=== PATIENT | male | born 1955 | race African-American/Black ===

== ENCOUNTER 2017-07-19 14:51 | Emergency (ER) | payer MEDICARE, MEDICAID ==
[2010-07-14 08:17] VITALS: BMI 33.0
[2017-07-19 18:23] LABS: BASOPHILS 0.3 % (0-2); EOSINOPHILS 1.8 % (0-7); HEMATOCRIT 39.3 % (42.0-54.0); HEMOGLOBIN 13.2 g/dL (13.5-17.5); IMMATURE GRANULOCYTES 0.3 % (0-5); LYMPHOCYTES 35.3 % (15-50); MCHC 33.6 g/dL (31.0-37.0); MCV 89.3 fL (80.0-100.0); MEAN PLATELET VOLUME 9.9 fL (7.4-10.4); MONOCYTES 11.9 % (2-11); NEUTROPHILS 50.4 % (40-80); PLATELET COUNT 208 10x3/uL (130-400); RDW 14.4 % (11.5-14.5); WBC 3.9 10x3/uL (4.8-10.8)
[2017-07-19 18:43] LABS: ALBUMIN 3.3 g/dL (3.4-5.0); ALKALINE PHOSPHATASE 69 U/L (46-116); ALT (SGPT) 22 U/L (10-68); BILIRUBIN - TOTAL 0.49 mg/dL (0.2-1.3); CALC OSMOLALITY 269 mosm/kg (275-300); CALCIUM 8.5 mg/dL (8.5-10.1); CARBON DIOXIDE 27.7 mmol/L (21.0-32.0); CHLORIDE - SERUM 115 mmol/L (98-107); CREATININE - SERUM 0.9 mg/dL (0.6-1.3); GLUCOSE 87 mg/dL (74-106); POTASSIUM - SERUM 4.1 mmol/L (3.5-5.1); PROTEIN - SERUM 6.7 g/dL (6.4-8.2); SODIUM 135 mmol/L (136-145); UREA NITROGEN 15 mg/dL (7-18); eGFR NON AFRICAN AMERICAN > 90 mL/min (90-120)
== END 2017-07-19 21:59 | disposition home or self-care (01) ==
LOC: D.ER 14:51
PROVIDERS: Physician Assistant Medical
DX: M54.5 Low back pain (principal); M54.30 Sciatica, unspecified side; I10 Essential (primary) hypertension

== ENCOUNTER 2017-07-28 13:16 | Emergency (ER) | payer MEDICARE, MEDICAID ==
[2010-07-14 08:17] VITALS: BMI 33.0
[2017-07-28 13:56] LABS: BASOPHILS 0.7 % (0-2); EOSINOPHILS 1.6 % (0-7); HEMATOCRIT 42.9 % (42.0-54.0); HEMOGLOBIN 14.8 g/dL (13.5-17.5); LYMPHOCYTES 37.7 % (15-50); MCH 30.7 pg (26.0-34.0); MCHC 34.5 g/dL (31.0-37.0); MEAN PLATELET VOLUME 9.8 fL (7.4-10.4); MONOCYTES 8.4 % (2-11); NEUTROPHILS 51.6 % (40-80); PLATELET COUNT 227 10x3/uL (130-400); RBC 4.82 10x6/uL (4.20-6.10); RDW 14.3 % (11.5-14.5)
[2017-07-28 14:05] LABS: WBC 4.3 10x3/uL (4.8-10.8)
[2017-07-28 14:08] LABS: ALBUMIN 3.8 g/dL (3.4-5.0); ALKALINE PHOSPHATASE 76 U/L (46-116); ALT (SGPT) 28 U/L (10-68); BILIRUBIN - TOTAL 0.63 mg/dL (0.2-1.3); CALC OSMOLALITY 278 mosm/kg (275-300); CALCIUM 8.7 mg/dL (8.5-10.1); CARBON DIOXIDE 24.5 mmol/L (21.0-32.0); CHLORIDE - SERUM 105 mmol/L (98-107); GLUCOSE 98 mg/dL (74-106); LIPASE 90 U/L (73-393); PROTEIN - SERUM 7.4 g/dL (6.4-8.2); SODIUM 139 mmol/L (136-145); UREA NITROGEN 14 mg/dL (7-18); eGFR NON AFRICAN AMERICAN 81 mL/min (90-120)
[2017-07-28 14:37] LABS: APPEARANCE CLEAR (CLEAR); BILIRUBIN NEGATIVE (NEGATIVE); COLOR YELLOW (YELLOW); GLUCOSE NEGATIVE (NEGATIVE); KETONE NEGATIVE (NEGATIVE); NITRITE NEGATIVE (NEGATIVE); PROTEIN NEGATIVE (NEGATIVE); SPECIFIC GRAVITY 1.015 (1.005-1.020); UROBILINOGEN NORMAL (NORMAL)
[2017-07-28 14:38] LABS: BACTERIA FEW /hpf (NONE SEEN); EPITHELIAL CELLS OCC /hpf (0-5); MUCUS <1+ /lpf (NONE SEEN); RED CELLS - URINE OCC /hpf (0-5); WHITE CELLS - URINE RARE /hpf (0-5)
== END 2017-07-28 17:09 | disposition home or self-care (01) ==
LOC: D.ER 13:16
PROVIDERS: Emergency Medicine
DX: K59.00 Constipation, unspecified (principal)

== ENCOUNTER 2017-07-29 08:01 | Emergency (ER) | payer MEDICARE, MEDICAID ==
[2010-07-14 08:17] VITALS: BMI 33.0
== END 2017-07-29 09:50 | disposition home or self-care (01) ==
LOC: D.ER 08:01
DX: M54.5 Low back pain (principal); M51.36 Other intervertebral disc degeneration, lumbar region; I10 Essential (primary) hypertension

== ENCOUNTER → 2020-01-18 17:35 | Outpatient (CLI) | payer MEDICARE, MEDICAID ==
[2010-07-14 08:17] VITALS: BMI 33.0
== END | disposition home or self-care (01) ==
LOC: D.LABREF 17:35
PROVIDERS: ATTEND Orthopaedic Surgery
DX: M17.12 Unilateral primary osteoarthritis, left knee (principal)

== ENCOUNTER 2020-01-25 09:22 | Inpatient (IN) | payer MEDICARE, MEDICAID ==
[~2020-01-25] VITALS: Ht 172.7 cm; Wt 107.7 kg
[2020-01-30] MEDS ORDERED: TOPROL XL100 MG PO (13:52)
[2020-01-30] MEDS ORDERED: ULTRAM50 MG PO (13:53)
[2020-01-30] MEDS ORDERED: MOBIC7.5 MG PO (13:53)
[2020-01-30] MEDS ORDERED: ZANAFLEX4 MG PO (13:54)
[2020-01-31 11:56] LABS: BILIRUBIN NEGATIVE (NEGATIVE); KETONE NEGATIVE (NEGATIVE); NITRITE NEGATIVE (NEGATIVE); UROBILINOGEN NORMAL (NORMAL)
[2020-01-31 12:03] LABS: CALC OSMOLALITY 281 mosm/kg (275-300); CALCIUM 8.2 mg/dL (8.5-10.1); CARBON DIOXIDE 25.3 mmol/L (21.0-32.0); CHLORIDE - SERUM 107 mmol/L (98-107); GLUCOSE 91 mg/dL (74-106); POTASSIUM - SERUM 4.3 mmol/L (3.5-5.1); SODIUM 141 mmol/L (136-145); UREA NITROGEN 15 mg/dL (7-18); eGFR NON AFRICAN AMERICAN 80 mL/min (90-120)
[2020-01-31 12:05] LABS: BASOPHILS 0.8 % (0-2); EOSINOPHILS 2.9 % (0-7); HEMATOCRIT 44.1 % (42.0-54.0); HEMOGLOBIN 14.8 g/dL (13.5-17.5); IMMATURE GRANULOCYTES 0.3 % (0-5); LYMPHOCYTES 33.5 % (15-50); MCHC 33.6 g/dL (31.0-37.0); MCV 92.3 fL (80.0-100.0); MEAN PLATELET VOLUME 10.3 fL (7.4-10.4); MONOCYTES 9.7 % (2-11); NEUTROPHILS 52.8 % (40-80); PLATELET COUNT 206 10x3/uL (130-400); RBC 4.78 10x6/uL (4.20-6.10); RDW 14.8 % (11.5-14.5); WBC 3.8 10x3/uL (4.8-10.8)
[2020-01-31 12:21] LABS: APTT 28.6 SECONDS (22.8-39.4); INR 1.12 (0.85-1.17); PROTIME 14.4 SECONDS (11.6-15.0)
[2020-02-06] VITALS (9 sets, daily range): BP systolic 111–153; BP diastolic 69–101; BMI 38.1
--- NOTE | 2020-02-06 13:12 | NUR ---
THROUGH TRAFFIC KEPT TO A MINIMUM. ALCOHOL AND HIBACLENS USED TO CLEAN BEFORE PREPPING. STERILE GOWNED AND GLOVED TO PREP.
--- NOTE | 2020-02-06 13:49 | MORECARE ---
CASE MANAGEMENT DISCHARGE SUMMARY PATIENT: NATHALIE CELESTE UNIT: [id number] ADM DATE: 02/06/20 AGE: 64 : 57 SEX: M ROOM/BED: D.1207 AUTHOR: SLICK DAVIS PHYSICIAN: REFERRING PHYSICIAN: YENI GRANDE DO DATE OF SERVICE: 02/06/20 Discharge Plan Patient Name: NATHALIE CELESTE Facility: [facility]:[place] : 1955 Planned Disposition: Anticipated Discharge Date: Discharge Date: Expected LOS: Initial Reviewer: [email or web address] Initial Review Date: 02/06/2020 Generated: 02/06/20 2:48 pm Patient Name: NATHALIE CELESTE Page [phone] at 1349 All edits/amendments must be made on the electronic document DICTATION DATE: 02/06/20 1349 SMALL BOAT ENGINEER: FRANK 02/06/20 1349 RPT#: [id number] DC DATE: STATUS: ADM IN [facility] [address] [place] [address] END OF REPORT
--- NOTE | 2020-02-06 20:00 | NUR ---
ALERT RESTING IN BED CPM IN USE, DENIES PAIN OR NEEDS AT THIS TIME, SEE SHIFT ASSESSMENT, CALL LIGHT IN REACH
[2020-02-07] VITALS: BP 112/72
[2020-02-07 04:30] VITALS: BP 117/71
--- NOTE | 2020-02-07 05:00 | NUR ---
PLACED ON CPM AT THIS TIME TOLERATING WELL
[2020-02-07 07:44] LABS: BASOPHILS 0 % (0-2); EOSINOPHILS 0.1 % (0-7); HEMATOCRIT 38.7 % (42.0-54.0); HEMOGLOBIN 13.1 g/dL (13.5-17.5); IMMATURE GRANULOCYTES 0.3 % (0-5); LYMPHOCYTES 11.3 % (15-50); MCHC 33.9 g/dL (31.0-37.0); MCV 91.5 fL (80.0-100.0); MEAN PLATELET VOLUME 10.3 fL (7.4-10.4); MONOCYTES 14.6 % (2-11); NEUTROPHILS 73.7 % (40-80); PLATELET COUNT 194 10x3/uL (130-400); RBC 4.23 10x6/uL (4.20-6.10); RDW 14.6 % (11.5-14.5); WBC 7.9 10x3/uL (4.8-10.8)
[2020-02-07 07:53] LABS: ANION GAP 12.9 mmol/L (8-16); BILIRUBIN - TOTAL 0.37 mg/dL (0.2-1.3); CALCIUM 7.6 mg/dL (8.5-10.1); CARBON DIOXIDE 24.8 mmol/L (21.0-32.0); CREATININE - SERUM 1.3 mg/dL (0.6-1.3); POTASSIUM - SERUM 4.7 mmol/L (3.5-5.1); PROTEIN - SERUM 5.8 g/dL (6.4-8.2)
--- NOTE | 2020-02-07 08:27 | NUR ---
PT RESTING QUIETLY IN BED. RESP EVEN AND UNLABORED. PT REPORTS PAIN 3/10 AT THIS TIME TO LEFT KNEE AREA. IV TO RIGHT FOREARM WITH 1/2 NS @ 50ML/HR INFUSING VIA PUMP. SITE WITHOUT REDNESS OR EDEMA. DRESSING C/D/I TO LEFT LOWER EXTREMITY. PT DENIES NEED FOR PAIN MEDICATION AT THIS TIME. DENIES FURTHER NEEDS. ENCOURAGED TO CALL WITH NEEDS. CL WITHIN REACH. ENCOURAGED TO CALL WITH NEEDS. CONTINUE POC
[2020-02-07 08:47] VITALS: BP 117/78
--- NOTE | 2020-02-07 09:15 | MORECARE ---
CASE MANAGEMENT DISCHARGE SUMMARY PATIENT: NATHALIE CELESTE UNIT: [id number] ADM DATE: 02/06/20 AGE: 64 : 57 SEX: M ROOM/BED: D.1207 AUTHOR: SLICK DAVIS PHYSICIAN: REFERRING PHYSICIAN: YENI GRANDE DO DATE OF SERVICE: 02/07/20 Discharge Plan Patient Name: NATHALIE CELESTE Facility: [facility]:[place] : 1955 Planned Disposition: Inpatient Rehab Anticipated Discharge Date: Discharge Date: Expected LOS: Initial Reviewer: [email or web address] Initial Review Date: 02/06/2020 Generated: 02/07/20 10:15 am Last DP export: 02/06/20 12:49 p Patient Name: NATHALIE CELESTE Page [phone] at 0915 All edits/amendments must be made on the electronic document DICTATION DATE: 02/07/20914 CLOTHESPIN MACHINE OPERATOR: FRANK 02/07/20914 RPT#: [id number] DC DATE: STATUS: ADM IN [facility] [address] [place] [address] END OF REPORT
--- NOTE | 2020-02-07 09:23 | MORECARE ---
CASE MANAGEMENT DISCHARGE SUMMARY PATIENT: NATHALIE OLIVO UNIT: [id number] ADM DATE: 02/06/20 AGE: 64 : 57 SEX: M ROOM/BED: D.1207 AUTHOR: RYAN,DOC PHYSICIAN: REFERRING PHYSICIAN: YENI GRANDE DO DATE OF SERVICE: 02/07/20 Discharge Plan Patient Name: NATHALIE OLIVO Facility: [facility]:[place] : 1955 Planned Disposition: Inpatient Rehab Anticipated Discharge Date: Discharge Date: Expected LOS: Initial Reviewer: [email or web address] Initial Review Date: 02/06/2020 Generated: 02/07/20 10:23 am DCPIA - Discharge Planning Initial Assessment Updated by JOSSE: Christian Dallas on 02/07/20 9:15 am * Is the patient Alert and Oriented? Yes * How many steps to enter\exit or inside your home? RAMP * PCP Dr. Nunez [facility] [place] * Pharmacy [facility]) * Preadmission Environment Home with Family * ADLs Partial Dependent * Partial ADLs (Assistance needed) Ambulation Dressing Medication Management * Equipment Walker * Other Equipment Right LL prosthesis * List name and contact numbers for known caregivers / representatives who currently or will assist patient after discharge: Raquel Olivo - [phone] Alejandrina Olivo - [phone] * Verbal permission to speak to the caregivers and representatives has been obtained from the patient. Yes * Community resources currently utilized None * Additional services required to return to the preadmission environment? Yes * Can the patient safely return to the preadmission environment? Yes * Has this patient been hospitalized within the prior 30 days at any hospital? No Coverage Notice Reviewer: JOSSE Dallas Notice Issued Date-Time: 02/07/2020 9:00 Notice Type: IM Discharge Notice Notice Delivered To: Patient Relationship to Patient: Director Data Architecture Name: Delivery Method: HAND - Hand Delivered Mamta Days: Prior Verbal Notification: Recipient Understood Notice: Yes Recipient Signature: Yes Med Rec Note Co-signed by Attending: Coverage Notice Comment: IMM Explained, understood, signed, copied and given to patient. Placed on Chart. Reviewer: [id number] Milad Dallas Notice Issued Date-Time: 02/07/2020 9:00 Notice Type: Patient Choice Letter Notice Delivered To: Patient Relationship to Patient: Director Data Architecture Name: Delivery Method: HAND - Hand Delivered Mamta Days: Prior Verbal Notification: Recipient Understood Notice: Yes Recipient Signature: Yes Med Rec Note Co-signed by Attending: Coverage Notice Comment: [facility] Inpatient Rehab Last DP export: 02/07/20 8:15 a Patient Name: NATHALIE OLIVO Page [phone] at 0923 All edits/amendments must be made on the electronic document DICTATION DATE: 02/07/20922 CORRECTIONS COUNSELOR: FRANK 02/07/20922 RPT#: [id number] DC DATE: STATUS: ADM IN [facility] [address] [place] [address] END OF REPORT
--- NOTE | 2020-02-07 10:04 | MORECARE ---
CASE MANAGEMENT DISCHARGE SUMMARY PATIENT: NATHALIE OLIVO UNIT: [id number] ADM DATE: 02/06/20 AGE: 64 : 57 SEX: M ROOM/BED: D.1207 AUTHOR: SLICK DAVIS PHYSICIAN: REFERRING PHYSICIAN: YENI GRANDE DO DATE OF SERVICE: 02/07/20 Discharge Plan Patient Name: NATHALIE OLIVO Facility: [facility]:[place] : 1955 Planned Disposition: Inpatient Rehab Anticipated Discharge Date: Discharge Date: Expected LOS: Initial Reviewer: [email or web address] Initial Review Date: 02/06/2020 Generated: 02/07/20 11:04 am Comments DCP- Discharge Planning Updated by [email or web address]: Christian Dallas on 02/07/20 9:[address] Patient Name: NATHALIE OLIVO Admission Status: Elective Accout number: [id number] Admission Date: 02-06-2020 : 1955 Admission Diagnosis: Attending: YENI GRANDE Current LOS: 1 Anticipated DC Date: Planned Disposition: Inpatient Rehab Primary Insurance: [facility] MEDICARE SOLUTIONS Discharge Planning Comments: CM met with patient to complete initial dc planning assessment. CM educated patient on the CM role and verbal consent given by patient to speak with his daughter, Raquel Olivo ([phone]) to complete assessment. Verified patient's address, phone number, and emergency contact phone numbers. Patient lives at home alone. At discharge patient plans to return home and feels this is a safe discharge. Patient states that his daughter had a wheelchair ramp installed. CM discussed availability of home health, rehab services, and medical equipment with both the patient and his daughter (over the phone). Discussed inpatient Rehab. Daughter and patient would like to enroll in rehabilitation services at [facility]. SNF, HH, and DME declined. No other DC needs identified at this time. Transportation provider at discharge will be with his Daughter, Raquel . CM will continue to follow and will assist as needed with dc plans/needs. Educational/Development Assistant: Christian Dallas DCPIA - Discharge Planning Initial Assessment Updated by [email or web address]: Christian Dallas on 9/16/20 10:03 am * Is the patient Alert and Oriented? Yes * How many steps to enter\exit or inside your home? RAMP * PCP Dr. Enrique Stinson [place] * Pharmacy [facility]) * Preadmission Environment Home Alone * ADLs Partial Dependent * Partial ADLs (Assistance needed) Ambulation Dressing Medication Management * Equipment Walker * Other Equipment Right LL prosthesis * List name and contact numbers for known caregivers / representatives who currently or will assist patient after discharge: Raquel Olivo - [phone] Alejandrina Olivo - [phone] * Verbal permission to speak to the caregivers and representatives has been obtained from the patient. Yes * Community resources currently utilized None * Additional services required to return to the preadmission environment? Yes * Can the patient safely return to the preadmission environment? Yes * Has this patient been hospitalized within the prior 30 days at any hospital? No Coverage Notice Reviewer: [email or web address] Dallas Notice Issued Date-Time: 02/07/2020 9:00 Notice Type: IM Discharge Notice Notice Delivered To: Patient Relationship to Patient: Detective Captain Name: Delivery Method: HAND - Hand Delivered Mamta Days: Prior Verbal Notification: Recipient Understood Notice: Yes Recipient Signature: Yes Med Rec Note Co-signed by Attending: Coverage Notice Comment: IMM Explained, understood, signed, copied and given to patient. Placed on Chart. Reviewer: [email or web address] Dallas Notice Issued Date-Time: 02/07/2020 9:00 Notice Type: Patient Choice Letter Notice Delivered To: Patient Relationship to Patient: Detective Captain Name: Delivery Method: HAND - Hand Delivered Mamta Days: Prior Verbal Notification: Recipient Understood Notice: Yes Recipient Signature: Yes Med Rec Note Co-signed by Attending: Coverage Notice Comment: [facility] Inpatient Rehab Last DP export: 02/07/20 8:24 a Patient Name: NATHALIE OLIOV Page [phone] at 1004 All edits/amendments must be made on the electronic document DICTATION DATE: 02/07/20 1004 INDIVIDUAL SMALL GROUP INSTRUCTOR: FRANK 02/07/20 1004 RPT#: [id number] DC DATE: STATUS: ADM IN [place] [address] [place] [address] END OF REPORT
--- NOTE | 2020-02-07 10:30 | NUR ---
PT SITTING UP IN CHAIR AT BEDSIDE. NO ACUTE DISTRESS NOTED. DENIES NEEDS AT THIS TIME. DENIES PAIN. CL WITHIN REACH. ENCOURAGED TO CALL WITH NEEDS.
--- NOTE | 2020-02-07 12:21 | NUR ---
PT REMAINS UP IN CHAIR AT BEDSIDE. PT REPORTS PAIN 10/10 AT THIS. PAIN MEDICATION ADMINISTERED PER PHYSICIAN ORDERS. CL WITHIN REACH. ENCOURAGED TO CALL WITH NEEDS.
[2020-02-07 13:37] VITALS: BP 132/90
--- NOTE | 2020-02-07 13:53 | OP ---
PATIENT NAME: NATHALIE OLIVO MEDICAL RECORD: [id number] :57 LOCATION:D. D.1207 ADMISSION DATE:02/06/20 SURGEON: ROCAEL GRANDE DO DATE OF OPERATION: 02/06/2020 PROCEDURE PERFORMED: Left total knee arthroplasty. PREOPERATIVE DIAGNOSIS: Left knee osteoarthritis. POSTOPERATIVE DIAGNOSIS: Left knee osteoarthritis. INDICATIONS: Mr. 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 He is very apprehensive to get his knee replaced as it is his only good leg, but he had failed all nonoperative treatment and wanted something done surgically to help him as the knee was affecting his activities of daily living and was very stiff and he could not walk well with it. He is aware of the risks including infection, bleeding, damage to nerves and vessels, need for further surgery, failure of implants, amputation, blood clots, and continued pain, loss of motion and even and he signed a consent. SURGEON: Rocael Grande DO DESCRIPTION OF PROCEDURE: The patient was taken to the operative suite after given a block by anesthesia in the preoperative area given 2 grams of Ancef, 80 mg of gentamicin preoperatively and a gram of TXA. He was then sedated and LMA was placed. The left lower extremity was prepped and draped in sterile fashion. Timeout was performed. Everyone was agreeance with correct site, side, patient and the procedure and began by marking on the incision, covered in Ioban. Then, using a 10 blade scalpel and went down to the capsule. Then, used a fresh 10 blade scalpel to do a medial parapatellar approach, everted the patella, removed part of the fat pad and milled down the patella and then removed the ACL and entered the femoral canal. I cut the distal femur off the intramedullary guide and then exposed the proximal tibia, cut it and removed the tibia as well as the menisci. I saw that I need to cut more tibia and put the guide back on and cut 2 mm more tibia. The knee was then flexed and the femur was measured to be 70. I then used to perform cutting block after the Chin wing and making sure there is no notching to cut the femur. The trial was impacted in place and floated in the trial tibia and marked the rotation. The tibial tray and the poly and drilled the patella and the lug holes in the femur. I then exposed the tibia removing the other osteophytes and reamed and punched the tibia as well as put extra holes in it for cement preparation. Once the cement was mixed, we put in the tibial implant and packed the implant into place and then put the femur on. Once the femur was put on, I put 10 poly in between and brought the knee into extension and cemented the patella on after cleaning it out with a curette and irrigation and then squeezed it, removed the excess cement from it as well. Then, I put in the 10% povidone iodine solution with 500 mL normal saline and let it sit for 3 minutes and irrigated out with cement dried. Once cement dried, I trialled the 12 poly, 12 fit best and had good stability in flexion and extension and good motion. I put in a 12 E poly anterior stabilized and locked it into place. I irrigated the knee one more time. I put in Lou, vancomycin, and tobramycin powder and closed the capsule with #1 Vicryl in a [id number] fashion. This was done by myself. Sivakumar Gupta, certified surgical bilingual sales assistant and Alexia Sharif, certified surgical bilingual sales assistant student, then Alexia and Sivakumar then closed the skin with 2-0 Vicryl in interrupted OPERATIVE REPORT [id number] ROULANATHALIE BRANCH fashion. ZipLine, Adaptic, 4 x 4s, ABD, Webril, and Damien wrap was then placed on the knee. CAROLE hose stocking on the leg and he was awakened and taken to recovery in stable condition. Blood loss approximately 250 mL. COMPLICATIONS: None. TRANSINT:[id number] Voice Confirmation ID: [id number] DOCUMENT ID: [id number] ROCAEL GRANDE DO at 1353 CC: [id number] DICTATION DATE: 02/06/20 132 SOLUTION ANALYST: 02/06/20 1356 [facility] IN [facility] [address] [place] [id number]
--- NOTE | 2020-02-07 14:30 | NUR ---
PT RESTING IN BED. NO ACUTE DISTRESS NOTED AT THIS TIME. REPORTS PAIN 3/10 AT THIS TIME. DENIES FURTHER NEEDS AT THIS TIME. CL WITHIN REACH. ENCOURGED TO CALL WITH NEEDS
[2020-02-07 15:08] VITALS: Ht 172.7 cm; Wt 107.7 kg
[2020-02-07 16:13] VITALS: BP 130/70
--- NOTE | 2020-02-07 17:46 | NUR ---
PT REPORTS PAIN 8/10 AT THIS TIME. PAIN MEDICATION ADMINISTERED PER MD ORDERS. CPM PLACED TO LEFT LOWER EXTREMITY.
--- NOTE | 2020-02-07 20:00 | NUR ---
ALERT RESTING IN BED, CPM IN USE, REPORTS MORE PAIN TONIGHT THAN EARLIER, REQUESTING PAIN MEDS INFORED TOO EARLY FOR PAIN MEDS BUT CAN QIVE ZANAFLEX MUSCLE RELAXER AGREED, SEE SHIFT ASSESSEMENT, CALL LIGHT IN REACH
[2020-02-07 20:25] VITALS: BP 143/95
[2020-02-08 04:30] VITALS: BP 122/80
[2020-02-08 06:33] LABS: BASOPHILS 0.2 % (0-2); EOSINOPHILS 1.7 % (0-7); HEMATOCRIT 39.6 % (42.0-54.0); HEMOGLOBIN 13.1 g/dL (13.5-17.5); IMMATURE GRANULOCYTES 0.2 % (0-5); LYMPHOCYTES 16.6 % (15-50); MCH 30.6 pg (26.0-34.0); MCHC 33.1 g/dL (31.0-37.0); MCV 92.5 fL (80.0-100.0); MEAN PLATELET VOLUME 10.6 fL (7.4-10.4); MONOCYTES 16.8 % (2-11); NEUTROPHILS 64.5 % (40-80); PLATELET COUNT 178 10x3/uL (130-400); RBC 4.28 10x6/uL (4.20-6.10); RDW 14.8 % (11.5-14.5)
[2020-02-08 06:44] LABS: ALBUMIN 2.9 g/dL (3.4-5.0); ALKALINE PHOSPHATASE 64 U/L (30-120); ALT (SGPT) 19 U/L (10-68); BILIRUBIN - TOTAL 0.65 mg/dL (0.2-1.3); CALC OSMOLALITY 281 mosm/kg (275-300); CALCIUM 7.5 mg/dL (8.5-10.1); CARBON DIOXIDE 26.2 mmol/L (21.0-32.0); CHLORIDE - SERUM 107 mmol/L (98-107); GLUCOSE 111 mg/dL (74-106); POTASSIUM - SERUM 4.4 mmol/L (3.5-5.1); PROTEIN - SERUM 5.6 g/dL (6.4-8.2); SODIUM 140 mmol/L (136-145); eGFR NON AFRICAN AMERICAN 80 mL/min (90-120)
[2020-02-08 06:45] LABS: UREA NITROGEN 18 mg/dL (7-18)
[2020-02-08 08:01] VITALS: BP 137/94
--- NOTE | 2020-02-08 08:18 | NUR ---
PT RESTING IN BED. NO ACUTE DISTRESS NOTED. CPM IN PLACE. REPORTS PAIN 8/10 AT THIS TIME. PAIN MEDICATIONS TO BE ADMINISTERED PER MD ORDERS. DRESSING TO LEFT LOWER EXTREMITY, C/D/I. PULSES PALPABLE AND EXTREMITY WARM TO TOUCH. IV TO RIGHT FOREARM SALINE LOC'D AT THIS TIME. SITE WITHOUT REDNESS OR EDEMA. EASILY FLUSHED. CPM REMOVED FOR 3 HOUR USE. DENIES FURTHER NEEDS AT THIS TIME. CL WITHIN REACH. ENCOURAQGED TO CALL WITH NEEDS. CONTINUE POC
[2020-02-08 11:32] VITALS: BP 161/98
[2020-02-08 15:27] VITALS: BP 152/103
[2020-02-08 17:06] VITALS: BP 132/89
[2020-02-08 20:00] VITALS: BP 131/88
--- NOTE | 2020-02-08 20:31 | NUR ---
RESTING IN BED CPM IN USE, DENIES PAIN OR NEEDS AT THIS TIME CALL LIGHT IN REACH
[2020-02-09 04:00] VITALS: BP 140/99
[2020-02-09] MEDS ORDERED: ELIQUIS2.5 MG PO (06:55)
[2020-02-09] MEDS ORDERED: oxyCODONE IR PO (06:55)
[2020-02-09] MEDS ORDERED: KEFLEX500 MG PO (06:56)
[2020-02-09] MEDS ORDERED: VISTARIL50 MG PO (06:56)
--- NOTE | 2020-02-09 07:23 | NUR ---
AWAKE AND ALERT. ORIENTED X3. REQUESTED AND GIVNE 5MG OXY WITH 4MG ZANAFLEX PO FOR C/O LEFT KNEE PAIN LEVEL 7. WILL MONITOR. LUNGS ARE CLEAR BILATERALLY, NO COUGH NOTED. INSTRUCTED IN USE OF IS WITH RETURN DEMONSTRATION. SKIN IS INTACT WITHOUT REDNESS EXCEPT INCISION TO LEFT KNEE WHICH HAS A DRY INTACT DRESSING IN PLACE. CPM ON AT THIS TIME. SL TO RIGHT FOREARM IS PATENT WITHOUT REDNESS AT INSERTION SITE. BREAKFAST SERVED IN ROOM DENIES NEEDS. VOIDED CLEAR KEVIN URINE INTO URINAL.
[2020-02-09 07:30] VITALS: BP 151/101
[2020-02-09 09:01] LABS: BASOPHILS 0.2 % (0-2); EOSINOPHILS 1.1 % (0-7); HEMATOCRIT 38.7 % (42.0-54.0); HEMOGLOBIN 12.8 g/dL (13.5-17.5); IMMATURE GRANULOCYTES 0.4 % (0-5); LYMPHOCYTES 17.4 % (15-50); MCH 30.8 pg (26.0-34.0); MCHC 33.1 g/dL (31.0-37.0); MCV 93.3 fL (80.0-100.0); MEAN PLATELET VOLUME 10.3 fL (7.4-10.4); MONOCYTES 13.6 % (2-11); NEUTROPHILS 67.3 % (40-80); PLATELET COUNT 183 10x3/uL (130-400); RBC 4.15 10x6/uL (4.20-6.10); RDW 14.6 % (11.5-14.5); WBC 5.6 10x3/uL (4.8-10.8)
[2020-02-09 09:22] LABS: ALBUMIN 2.6 g/dL (3.4-5.0); ALKALINE PHOSPHATASE 60 U/L (30-120); ALT (SGPT) 19 U/L (10-68); BILIRUBIN - TOTAL 0.91 mg/dL (0.2-1.3); CALC OSMOLALITY 275 mosm/kg (275-300); CALCIUM 8.1 mg/dL (8.5-10.1); CARBON DIOXIDE 26.2 mmol/L (21.0-32.0); CHLORIDE - SERUM 105 mmol/L (98-107); GLUCOSE 134 mg/dL (74-106); POTASSIUM - SERUM 4.1 mmol/L (3.5-5.1); PROTEIN - SERUM 6.2 g/dL (6.4-8.2); SODIUM 137 mmol/L (136-145); eGFR NON AFRICAN AMERICAN 80 mL/min (90-120)
[2020-02-09 09:33] LABS: UREA NITROGEN 12 mg/dL (7-18)
--- NOTE | 2020-02-09 10:30 | NUR ---
AMBULATED IN HALLWAY WITH PT. DID WELL. UP AT BEDSIDE TAKING BATH. DENIES NEEDS.
[2020-02-09 11:45] VITALS: BP 132/91
--- NOTE | 2020-02-09 13:24 | MORECARE ---
CASE MANAGEMENT DISCHARGE SUMMARY PATIENT: NATHALIE OLIVO UNIT: [id number] ADM DATE: 02/06/20 AGE: 64 : 57 SEX: M ROOM/BED: D.1207 AUTHOR: RYAN,DOC PHYSICIAN: REFERRING PHYSICIAN: YENI GRANDE DO DATE OF SERVICE: 02/09/20 Discharge Plan Patient Name: NATHALIE OLIVO Facility: [facility]:[place] : 1955 Planned Disposition: Inpatient Rehab Anticipated Discharge Date: Discharge Date: Expected LOS: Initial Reviewer: [email or web address] Initial Review Date: 02/06/2020 Generated: 02/09/20 2:24 pm Comments DCP- Discharge Planning Updated by [email or web address]: Amber Noble on 02/09/20 12:[address] CM contacted [facility], spoke with Robin, regarding Rehab order. Approval pending insurance approval. DCP- Discharge Planning Updated by [email or web address]: Christian Dallas on 02/07/20 9:[address] Patient Name: NATHALIE OLIVO Admission Status: Elective Accout number: [id number] Admission Date: 02-06-2020 : 1955 Admission Diagnosis: Attending: YENI GRANDE Current LOS: 1 Anticipated DC Date: Planned Disposition: Inpatient Rehab Primary Insurance: [facility] MEDICARE SOLUTIONS Discharge Planning Comments: CM met with patient to complete initial dc planning assessment. CM educated patient on the CM role and verbal consent given by patient to speak with his daughter, Raquel Olivo ([phone]) to complete assessment. Verified patient's address, phone number, and emergency contact phone numbers. Patient lives at home alone. At discharge patient plans to return home and feels this is a safe discharge. Patient states that his daughter had a wheelchair ramp installed. CM discussed availability of home health, rehab services, and medical equipment with both the patient and his daughter (over the phone). Discussed inpatient Rehab. Daughter and patient would like to enroll in rehabilitation services at [facility]. SNF, HH, and DME declined. No other DC needs identified at this time. Transportation provider at discharge will be with his Daughter, Raquel . CM will continue to follow and will assist as needed with dc plans/needs. Matrix Drier Tender: Christian Dallas DCPIA - Discharge Planning Initial Assessment Updated by JOSSE: Christian Dallas on 02/07/20 10:03 am * Is the patient Alert and Oriented? Yes * How many steps to enter\exit or inside your home? RAMP * PCP Dr. Enrique Stinson [place] * Pharmacy [facility]) * Preadmission Environment Home Alone * ADLs Partial Dependent * Partial ADLs (Assistance needed) Ambulation Dressing Medication Management * Equipment Walker * Other Equipment Right LL prosthesis * List name and contact numbers for known caregivers / representatives who currently or will assist patient after discharge: Raquel Olivo - [phone] Alejandrina Olivo - [phone] * Verbal permission to speak to the caregivers and representatives has been obtained from the patient. Yes * Community resources currently utilized None * Additional services required to return to the preadmission environment? Yes * Can the patient safely return to the preadmission environment? Yes * Has this patient been hospitalized within the prior 30 days at any hospital? No Coverage Notice Reviewer: JOSSE Dallas Notice Issued Date-Time: 02/07/2020 9:00 Notice Type: IM Discharge Notice Notice Delivered To: Patient Relationship to Patient: Patrol Police Lieutenant Name: Delivery Method: HAND - Hand Delivered Mamta Days: Prior Verbal Notification: Recipient Understood Notice: Yes Recipient Signature: Yes Med Rec Note Co-signed by Attending: Coverage Notice Comment: IMM Explained, understood, signed, copied and given to patient. Placed on Chart. Reviewer: [id number] Milad Dallas Notice Issued Date-Time: 02/07/2020 9:00 Notice Type: Patient Choice Letter Notice Delivered To: Patient Relationship to Patient: Patrol Police Lieutenant Name: Delivery Method: HAND - Hand Delivered Mamta Days: Prior Verbal Notification: Recipient Understood Notice: Yes Recipient Signature: Yes Med Rec Note Co-signed by Attending: Coverage Notice Comment: [facility] Inpatient Rehab Last DP export: 02/07/20 9:04 a Patient Name: NATHALIE OLIVO Page [phone] at 1324 All edits/amendments must be made on the electronic document DICTATION DATE: 02/09/20 1324 SENIOR ENTERPRISE ARCHITECT: FRANK 02/09/20 1324 RPT#: [id number] DC DATE: STATUS: ADM IN [facility] [address] [place] [address] END OF REPORT
--- NOTE | 2020-02-09 13:43 | NUR ---
AMBULATED IN HALLWAY IW PT. REQUESTED AND GIVEN 10MG OXY PO FOR C/O PAIN LEVEL 8. WILL MONITOR.
--- NOTE | 2020-02-09 14:47 | NUR ---
Rehab Note- Acute Inpatient Rehab prescreen order received. THe patient has [facility] insurance and requires a PreAuth prior to an acute inpatient rehab stay. PreAuth has been initiated and clinicals faxed at this time. Will continue to await determination from [facility]. Thank you for this referral! Nida Gallegos RN Clinical Liaison, [facility] Rehab
[2020-02-09 15:56] VITALS: BP 142/96
--- NOTE | 2020-02-09 17:44 | NUR ---
OT NOTE: PT COMPLETED SUPINE TO SIT WITH SPV. PT COMPLETED EOB SITTING WITH SPV. PT COMPLETED BUE AROM EXERCISES TOLERATED. PT IS MOTIVATED AND PARTICIPATED WELL. PT EXHIBITED GOOD TRUNK CONTROL AND SITTING BALANCE. [phone] THANK YOU,MAKENNA BUNCH
--- NOTE | 2020-02-09 19:42 | NUR ---
ATE MOST OF SUPPER. DENIES NEEDS. NO CHANGES NOTED.
[2020-02-09 20:09] VITALS: BP 139/88
[2020-02-10] VITALS: BP 153/100
[2020-02-10 04:00] VITALS: BP 126/88
--- NOTE | 2020-02-10 04:05 | NUR ---
PATIENT IS ALERT AND ORENTED ABLE TO VOICE NEEDS AND WANTS TO STAFF. HAS OLD AKA SINCE HE WAS 13YR OLD PER PT. IV TO RIGHT FOREARM INCENTIVE SPIROMETER IN REACH AT BEDSIDE. WATER AND CALL LIGHT IN REACH. HAD OA OF LEFT KNEE, CPM PER ORDERS. PAIN CONTROLED WITH PRN OXYCODONE IR 10 mg and ZANAFLEX CHECKED OFTEN FOR SAFETY AND NEEDS.
[2020-02-10 05:39] LABS: BASOPHILS 0.4 % (0-2); EOSINOPHILS 2.7 % (0-7); HEMATOCRIT 40.2 % (42.0-54.0); HEMOGLOBIN 13.4 g/dL (13.5-17.5); IMMATURE GRANULOCYTES 0.4 % (0-5); LYMPHOCYTES 24.4 % (15-50); MCH 31.1 pg (26.0-34.0); MCHC 33.3 g/dL (31.0-37.0); MCV 93.3 fL (80.0-100.0); MEAN PLATELET VOLUME 10.5 fL (7.4-10.4); MONOCYTES 13.9 % (2-11); NEUTROPHILS 58.2 % (40-80); RBC 4.31 10x6/uL (4.20-6.10); RDW 14.2 % (11.5-14.5); WBC 5.2 10x3/uL (4.8-10.8)
[2020-02-10 05:41] LABS: PLATELET COUNT 225 10x3/uL (130-400)
[2020-02-10 05:58] LABS: ALBUMIN 2.7 g/dL (3.4-5.0); ALKALINE PHOSPHATASE 62 U/L (30-120); BILIRUBIN - TOTAL 1.11 mg/dL (0.2-1.3); CALC OSMOLALITY 271 mosm/kg (275-300); CALCIUM 8.7 mg/dL (8.5-10.1); CHLORIDE - SERUM 103 mmol/L (98-107); CREATININE - SERUM 0.9 mg/dL (0.6-1.3); GLUCOSE 101 mg/dL (74-106); POTASSIUM - SERUM 4.5 mmol/L (3.5-5.1); PROTEIN - SERUM 6.4 g/dL (6.4-8.2); SODIUM 136 mmol/L (136-145); UREA NITROGEN 12 mg/dL (7-18); eGFR NON AFRICAN AMERICAN > 90 mL/min (90-120)
[2020-02-10 06:02] LABS: ALT (SGPT) 25 U/L (10-68)
--- NOTE | 2020-02-10 09:50 | NUR ---
PT ALERT X 4. BREATH SOUNDS CLEAR BILAT. IV TO RIGHT FOREARM, DRESSING CDI. ALEK TO LEFT KNEE CDI. PT REPORTING PAIN OF 7/10. MEDICATED PER ORDERS, WILL CONTINUE TO MONITOR. BED LOW, CALL LIGHT IN REACH. NO OTHER NEEDS AT THIS TIME.
[2020-02-10 14:00] VITALS: BP 149/87
[2020-02-10 18:31] VITALS: BP 129/88
--- NOTE | 2020-02-10 19:00 | NUR ---
PATIENT RESTING IN BED AND DENIES NEEDS AT THIS TIME. BED IN LOWEST POSITION AND CALL LIGHT WITHIN REACH. ENCOURAGED THE PATIENT TO CALL IF HE HAS NEEDS. WILL CONTINUE TO MONITOR.
[2020-02-10 20:00] VITALS: BP 149/92
--- NOTE | 2020-02-10 20:28 | NUR ---
ADMINISTERED MEDS PER ORDERS. PATIENT DENIES OTHER NEEDS. WILL CONTINUE TO MONITOR.
[2020-02-10 23:18] VITALS: BP 142/95
[2020-02-11 04:37] VITALS: BP 128/81
--- NOTE | 2020-02-11 05:55 | NUR ---
PLACED PATIENT ON CPM TO LEFT KNEE
[2020-02-11 06:15] LABS: BASOPHILS 0.7 % (0-2); EOSINOPHILS 2.4 % (0-7); HEMATOCRIT 39.5 % (42.0-54.0); HEMOGLOBIN 13.4 g/dL (13.5-17.5); IMMATURE GRANULOCYTES 0.4 % (0-5); LYMPHOCYTES 26.6 % (15-50); MCH 31.2 pg (26.0-34.0); MCHC 33.9 g/dL (31.0-37.0); MCV 91.9 fL (80.0-100.0); MEAN PLATELET VOLUME 9.9 fL (7.4-10.4); MONOCYTES 16.3 % (2-11); NEUTROPHILS 53.6 % (40-80); PLATELET COUNT 246 10x3/uL (130-400); WBC 4.6 10x3/uL (4.8-10.8)
[2020-02-11 06:55] LABS: ALBUMIN 2.6 g/dL (3.4-5.0); ANION GAP 12.1 mmol/L (8-16); BILIRUBIN - TOTAL 0.65 mg/dL (0.2-1.3); CALCIUM 8.4 mg/dL (8.5-10.1); CARBON DIOXIDE 27.2 mmol/L (21.0-32.0); CREATININE - SERUM 1.1 mg/dL (0.6-1.3); POTASSIUM - SERUM 4.3 mmol/L (3.5-5.1); PROTEIN - SERUM 6.4 g/dL (6.4-8.2)
[2020-02-11 08:45] VITALS: BP 121/79
--- NOTE | 2020-02-11 09:10 | NUR ---
PT ALERT X 4. BREATH SOUNDS CLEAR BILAT. IV TO RIGHT FOREARM, SALINE LOCKED. EXISTING AKA, PROSTHESIS IN ROOM. ALEK TO LEFT KNEE, DRESSING CDI. PT REPORTING PAIN OF 8/10, MEDICATED PER ORDERS, WILL CONTINUE TO MONITOR. CPM REMOVED. BED LOW, CALL LIGHT IN REACH. NO OTHER NEEDS AT THIS TIME.
--- NOTE | 2020-02-11 20:30 | NUR ---
A&0 X 4. PAIN 12/31. CPM REMOVED. DENIES NEEDS, CTM.
[2020-02-11 21:16] VITALS: BP 119/72
[2020-02-12 01:27] VITALS: BP 139/76
--- NOTE | 2020-02-12 02:39 | NUR ---
I have reviewed this patient and I concur with the Shift Assessment completed by the Licensed Practical Nurse today this shift.
[2020-02-12 05:44] VITALS: BP 119/71
--- NOTE | 2020-02-12 06:00 | NUR ---
PT PLACED ON CPM, TOLERATING WELL. WILL PASS IN REPORT, CTM.
[2020-02-12 07:46] VITALS: BP 122/72
--- NOTE | 2020-02-12 08:03 | NUR ---
0700 BEDSIDE RRPORT RECEIVED ASSESSMENT COMPLETE DSG INTACT TO LEFT KNEE SURGICAL SITE
--- NOTE | 2020-02-12 08:05 | NUR ---
0745 ASKED TO REMOVE CPM PAIN 12/31 PAIN MED GIVEN
--- NOTE | 2020-02-12 08:06 | NUR ---
[address] DR ASKED RN TO CHANGE KNEE DRESSING AND WRAP WITH ALEK BANDAGE TO LEFT LEG
[2020-02-12 12:03] VITALS: BP 109/72
--- NOTE | 2020-02-12 12:53 | NUR ---
1000 CLEANSED INCISION SIGHT TO LEFT KNEE WITH NS LET DRY AND APPLIED CLEAN BANDAGE PER DR GRANDE INSTRUCTIONS. WRAPPED LEFT LEG WITH ALEK WRAP
--- NOTE | 2020-02-12 13:00 | NUR ---
1230 ASSIST X 1 UP TO TOILET USING WALLKER AND WEARING PROSTHESIS
--- NOTE | 2020-02-12 16:24 | NUR ---
1620 REPORT CALLED TO BENI IN REHAB. STATED SHE WILL CALL WHEN ROOM IS READY
[2020-02-12 16:41] VITALS: BP 104/64
--- NOTE | 2020-02-12 18:22 | NUR ---
1819 BENI CALLED FROM REHAB STATING THAT HE DOES NOT HAVE APPROVAL YET TO GO TO REHAB. INFORMED PATIENT THAT HE WILL SPENT THE NIGHT ON [employer]
[2020-02-12 20:00] VITALS: BP 120/78
[2020-02-13] VITALS: BP 120/64
--- NOTE | 2020-02-13 03:50 | NUR ---
I have reviewed this patient and I concur with the Shift Assessment completed by the Licensed Practical Nurse today this shift.
[2020-02-13 04:00] VITALS: BP 111/72
[2020-02-13 08:56] VITALS: BP 103/75
--- NOTE | 2020-02-13 10:08 | NUR ---
Called [facility] re the ARU referral initiated on 02/09/20. Spoke to Aline who states no descision has been made at this time. Requested to speak to the CM handling the case to possibily expediate. Called Robert Moreira [phone] recieved a V/M. Left a very detailed V/M re the urgency of a descision and requested a call back JE. Marilia Kim RN Clinical Liaison, Rehab
--- NOTE | 2020-02-13 11:34 | NUR ---
0700 BEDSIDE REPORT RECEIVED ASSESSMENT COMPLETE
--- NOTE | 2020-02-13 12:07 | NUR ---
0900 TOTAL CHG BATH WITH SET UP ASSIST ONLY LINENS CHANGED
--- NOTE | 2020-02-13 12:11 | NUR ---
1000 C/O PAIN 03/02 TO HIPS AND LEFT KNEE OXYCODONE IR 10 MG PO GIVEN
[2020-02-13 12:20] VITALS: BP 110/75
--- NOTE | 2020-02-13 12:46 | NUR ---
Nutrition Follow-up: Chart reviewed. S/p tka. Noted discharge order and awaiting rehab acceptance. Diet: Vegetartian PO intake: PO intake not being recorded into EMR most recently. He had eaten 100% of lunch tray yesterday. He states that his appetite is good. He also states that he wants to lose weight. Last BM: 02/10/20. Wt: 236.9# (02/13/20) Meds and labs reviewed. Recommend continue current diet. RD following.
--- NOTE | 2020-02-13 14:26 | MORECARE ---
CASE MANAGEMENT DISCHARGE SUMMARY PATIENT: NATHALIE OLIVO UNIT: [id number] ADM DATE: 02/06/20 AGE: 64 : 57 SEX: M ROOM/BED: D.2239 AUTHOR: SLICK DAVIS PHYSICIAN: REFERRING PHYSICIAN: YENI GRANDE DO DATE OF SERVICE: 02/13/20 Discharge Plan Patient Name: NATHALIE OLIVO Facility: [facility]:[place] : 1955 Planned Disposition: Inpatient Rehab Anticipated Discharge Date: Discharge Date: Expected LOS: Initial Reviewer: [email or web address] Initial Review Date: 02/06/2020 Generated: 02/13/20 3:26 pm Comments DCP- Discharge Planning Updated by [email or web address]: Babs Rodrigues on 02/13/20 1:[address] I CALLED CASSANDRA WITH [facility] AND LEFT A MESSAGE FOR HER TO CALL ME AND SEE IF THERE WAS ANYTHING WE CAN DO TO GET AUTH FOR INPATIENT REHAB. DCP- Discharge Planning Updated by [email or web address]: Amber Noble on 02/09/20 12:[address] CM contacted [facility], spoke with Robin, regarding Rehab order. Approval pending insurance approval. DCP- Discharge Planning Updated by [email or web address]: Christian Dallas on 02/07/20 9:[address] Patient Name: NATHALIE OLIVO Admission Status: Elective Accout number: [id number] Admission Date: 02-06-2020 : 1955 Admission Diagnosis: Attending: YENI GRANDE Current LOS: 1 Anticipated DC Date: Planned Disposition: Inpatient Rehab Primary Insurance: [facility] MEDICARE SOLUTIONS Discharge Planning Comments: CM met with patient to complete initial dc planning assessment. CM educated patient on the CM role and verbal consent given by patient to speak with his daughter, Raquel Olivo ([phone]) to complete assessment. Verified patient's address, phone number, and emergency contact phone numbers. Patient lives at home alone. At discharge patient plans to return home and feels this is a safe discharge. Patient states that his daughter had a wheelchair ramp installed. CM discussed availability of home health, rehab services, and medical equipment with both the patient and his daughter (over the phone). Discussed inpatient Rehab. Daughter and patient would like to enroll in rehabilitation services at [facility]. SNF, HH, and DME declined. No other DC needs identified at this time. Transportation provider at discharge will be with his Daughter, Raquel . CM will continue to follow and will assist as needed with dc plans/needs. Program Clinician: Christian Dallas DCPIA - Discharge Planning Initial Assessment Updated by [email or web address]: Christian Dallas on 02/07/20 10:03 am * Is the patient Alert and Oriented? Yes * How many steps to enter\exit or inside your home? RAMP * PCP Dr. Enrique Stinson [place] * Pharmacy [facility]) * Preadmission Environment Home Alone * ADLs Partial Dependent * Partial ADLs (Assistance needed) Ambulation Dressing Medication Management * Equipment Walker * Other Equipment Right LL prosthesis * List name and contact numbers for known caregivers / representatives who currently or will assist patient after discharge: Raquel Pallavi - [phone] Alejandrina Pallavi [phone] * Verbal permission to speak to the caregivers and representatives has been obtained from the patient. Yes * Community resources currently utilized None * Additional services required to return to the preadmission environment? Yes * Can the patient safely return to the preadmission environment? Yes * Has this patient been hospitalized within the prior 30 days at any hospital? No Coverage Notice Reviewer: [id number] Milad Dallas Notice Issued Date-Time: 02/07/2020 9:00 Notice Type: IM Discharge Notice Notice Delivered To: Patient Relationship to Patient: Diamond Wheel Molder Name: Delivery Method: HAND - Hand Delivered Mamta Days: Prior Verbal Notification: Recipient Understood Notice: Yes Recipient Signature: Yes Med Rec Note Co-signed by Attending: Coverage Notice Comment: IMM Explained, understood, signed, copied and given to patient. Placed on Chart. Reviewer: [id number] Milad Dallas Notice Issued Date-Time: 02/07/2020 9:00 Notice Type: Patient Choice Letter Notice Delivered To: Patient Relationship to Patient: Diamond Wheel Molder Name: Delivery Method: HAND - Hand Delivered Mamta Days: Prior Verbal Notification: Recipient Understood Notice: Yes Recipient Signature: Yes Med Rec Note Co-signed by Attending: Coverage Notice Comment: [facility] Inpatient Rehab Reviewer: [id number] Milad Theodore Notice Issued Date-Time: 02/12/2020 15:45 Notice Type: IM Discharge Notice Notice Delivered To: Relationship to Patient: Diamond Wheel Molder Name: Delivery Method: HAND - Hand Delivered Mamta Days: Prior Verbal Notification: Recipient Understood Notice: Yes Recipient Signature: Yes Med Rec Note Co-signed by Attending: Coverage Notice Comment: Last DP export: 02/09/20 12:24 p Patient Name: NATHALIE OLIVO Page [phone] at 1426 All edits/amendments must be made on the electronic document DICTATION DATE: 02/13/20 1426 NARCOTICS AND/OR VICE DETECTIVE: FRANK 02/13/20 1426 RPT#: [id number] DC DATE: STATUS: ADM IN [facility] [address] [place] [address] END OF REPORT
--- NOTE | 2020-02-13 16:33 | NUR ---
RECEIVED TO ROOM 1204 VIA BED FROM MED SURG. A/O X3. DRESSING TO LEFT TKA DRY AND INTACT. PROSTHESIS IN PLACE TO RIGHT LEG. DENIES NEEDS. ON CPM AT THIS TIME.
--- NOTE | 2020-02-13 17:30 | NUR ---
ATE ALL OF SUPPER. CONTINUES ON CPM AT THIS TIME. DENIES NEEDS. NO CHANGES NOTED.
--- NOTE | 2020-02-13 19:18 | NUR ---
PATIENT RESTING IN BED WITH NO S/S OF DISTRESS AND DENIES NEEDS AT THIS TIME. BED IN LOWEST POSITION AND CALL LIGHT WITHIN REACH. ENCOURAGED THE PATIENT TO CALL IF HE HAS NEEDS. WILL CONTINUE TO MONITOR.
[2020-02-13 20:37] VITALS: BP 123/77
--- NOTE | 2020-02-13 20:54 | NUR ---
ADMINISTERED MEDS PER ORDERS. PATIENT DENIES OTHER NEEDS. WILL CONTINUE TO MONITOR.
[2020-02-14 04:20] VITALS: BP 123/82
--- NOTE | 2020-02-14 04:45 | NUR ---
PATIENT PLACED ON CPM TO LEFT KNEE
--- NOTE | 2020-02-14 06:39 | MORECARE ---
CASE MANAGEMENT DISCHARGE SUMMARY PATIENT: NATHALIE OLIVO UNIT: [id number] ADM DATE: 02/06/20 AGE: 64 : 57 SEX: M ROOM/BED: D.1204 AUTHOR: SLICK DAVIS PHYSICIAN: REFERRING PHYSICIAN: YENI GRANDE DO DATE OF SERVICE: 02/14/20 Discharge Plan Patient Name: NATHALIE OLIVO Facility: [facility]:[place] : 1955 Planned Disposition: Inpatient Rehab Anticipated Discharge Date: Discharge Date: Expected LOS: Initial Reviewer: [email or web address] Initial Review Date: 02/06/2020 Generated: 02/14/20 7:38 am Comments DCP- Discharge Planning Updated by [id number]: Babs Rodrigues on 02/14/20 5:[address] LATE ENTRY: CASSANDRA WITH [facility] CALLED ME BACK AND STATED THAT SHE SHOWS THAT IT IS IS THE MD HANDS, SHE SAID THE CM WHO IS THE ONE I NEED TO TALK TO IS JOSEF BARNEY [phone] SHE SAID THAT SHE WOULD SEND HIM AN EMAIL, I CALLED JOSEF AND LEFT MESSAGE FOR HIM TO CALL ME. I EXPLAINED TO CASSANDRA THAT THEY PATIENT HAS BEEN READY TO GO TO REHAB SINCE THIS PAST WEDNESDAY AND THAT THEY WERE THE ONES WHO WAS HOLDING THIS UP. CM WILL CONTINUE TO WORK TO TRY TO GET THE PATIENT DOWNSTAIRS DCP- Discharge Planning Updated by [email or web address]: Babs Rodrigues on 02/13/20 1:[address] I CALLED CASSANDRA WITH [facility] AND LEFT A MESSAGE FOR HER TO CALL ME AND SEE IF THERE WAS ANYTHING WE CAN DO TO GET AUTH FOR INPATIENT REHAB. DCP- Discharge Planning Updated by [email or web address]: Amber Noble on 02/09/20 12:[address] CM contacted [facility], spoke with Robin, regarding Rehab order. Approval pending insurance approval. DCP- Discharge Planning Updated by [email or web address]: Christian Dallas on 02/07/20 9:[address] Patient Name: NATHALIE OLIVO Admission Status: Elective Accout number: [id number] Admission Date: 02-06-2020 : 1955 Admission Diagnosis: Attending: YENI GRANDE Current LOS: 1 Anticipated DC Date: Planned Disposition: Inpatient Rehab Primary Insurance: [facility] MEDICARE SOLUTIONS Discharge Planning Comments: CM met with patient to complete initial dc planning assessment. CM educated patient on the CM role and verbal consent given by patient to speak with his daughter, Raquel Olivo ([phone]) to complete assessment. Verified patient's address, phone number, and emergency contact phone numbers. Patient lives at home alone. At discharge patient plans to return home and feels this is a safe discharge. Patient states that his daughter had a wheelchair ramp installed. CM discussed availability of home health, rehab services, and medical equipment with both the patient and his daughter (over the phone). Discussed inpatient Rehab. Daughter and patient would like to enroll in rehabilitation services at [facility]. SNF, HH, and DME declined. No other DC needs identified at this time. Transportation provider at discharge will be with his Daughter, Raquel . CM will continue to follow and will assist as needed with dc plans/needs. Food Truck Caterer: Christian Dallas DCPIA - Discharge Planning Initial Assessment Updated by [email or web address]: Christian Dallas on 02/07/20 10:03 am * Is the patient Alert and Oriented? Yes * How many steps to enter\exit or inside your home? RAMP * PCP Dr. Enrique Stinson [place] * Pharmacy [facility]) * Preadmission Environment Home Alone * ADLs Partial Dependent * Partial ADLs (Assistance needed) Ambulation Dressing Medication Management * Equipment Walker * Other Equipment Right LL prosthesis * List name and contact numbers for known caregivers / representatives who currently or will assist patient after discharge: Raquel Olivo - [phone] Alejandrina Girardpoon - [phone] * Verbal permission to speak to the caregivers and representatives has been obtained from the patient. Yes * Community resources currently utilized None * Additional services required to return to the preadmission environment? Yes * Can the patient safely return to the preadmission environment? Yes * Has this patient been hospitalized within the prior 30 days at any hospital? No Coverage Notice Reviewer: [id number] Milad Dallas Notice Issued Date-Time: 02/07/2020 9:00 Notice Type: IM Discharge Notice Notice Delivered To: Patient Relationship to Patient: Ore Miner Blasting Name: Delivery Method: HAND - Hand Delivered Mamta Days: Prior Verbal Notification: Recipient Understood Notice: Yes Recipient Signature: Yes Med Rec Note Co-signed by Attending: Coverage Notice Comment: IMM Explained, understood, signed, copied and given to patient. Placed on Chart. Reviewer: [id number] Milad Dallas Notice Issued Date-Time: 02/07/2020 9:00 Notice Type: Patient Choice Letter Notice Delivered To: Patient Relationship to Patient: Ore Miner Blasting Name: Delivery Method: HAND - Hand Delivered Mamta Days: Prior Verbal Notification: Recipient Understood Notice: Yes Recipient Signature: Yes Med Rec Note Co-signed by Attending: Coverage Notice Comment: [facility] Inpatient Rehab Reviewer: [id number] - Marysol Theodore Notice Issued Date-Time: 02/12/2020 15:45 Notice Type: IM Discharge Notice Notice Delivered To: Relationship to Patient: Ore Miner Blasting Name: Delivery Method: HAND - Hand Delivered Mamta Days: Prior Verbal Notification: Recipient Understood Notice: Yes Recipient Signature: Yes Med Rec Note Co-signed by Attending: Coverage Notice Comment: Last DP export: 02/13/20 1:26 p Patient Name: NATHALIE OLIVO Page [phone] at 0639 All edits/amendments must be made on the electronic document DICTATION DATE: 02/14/20637 DIVISION CHAIR: FRANK 02/14/20637 RPT#: [id number] DC DATE: STATUS: ADM IN [facility] [address] [place] [address] END OF REPORT
--- NOTE | 2020-02-14 06:58 | MORECARE ---
CASE MANAGEMENT DISCHARGE SUMMARY PATIENT: NATHALIE OLIVO UNIT: [id number] ADM DATE: 02/06/20 AGE: 64 : 57 SEX: M ROOM/BED: D.1204 AUTHOR: SLICK DAVIS PHYSICIAN: REFERRING PHYSICIAN: YENI GRANDE DO DATE OF SERVICE: 02/14/20 Discharge Plan Patient Name: NATHALIE OLIVO Facility: [facility]:[place] : 1955 Planned Disposition: Inpatient Rehab Anticipated Discharge Date: Discharge Date: Expected LOS: Initial Reviewer: [email or web address] Initial Review Date: 02/06/2020 Generated: 02/14/20 7:57 am Comments DCP- Discharge Planning Updated by [id number]: Babs Rodrigues on 02/14/20 5:[address] I HAVE CALLED [facility] THIS AM AND LEFT MESSAGES WITH PB AT [phone] EXT [phone] & JOSEF BARNEY [phone] DCP- Discharge Planning Updated by [email or web address]: Babs Rodrigues on 02/14/20 5:[address] LATE ENTRY: CASSANDRA WITH [facility] CALLED ME BACK AND STATED THAT SHE SHOWS THAT IT IS IS THE MD HANDS, SHE SAID THE CM WHO IS THE ONE I NEED TO TALK TO IS JOSEF BARNEY [phone] SHE SAID THAT SHE WOULD SEND HIM AN EMAIL, I CALLED JOSEF AND LEFT MESSAGE FOR HIM TO CALL ME. I EXPLAINED TO CASSANDRA THAT THEY PATIENT HAS BEEN READY TO GO TO REHAB SINCE THIS PAST WEDNESDAY AND THAT THEY WERE THE ONES WHO WAS HOLDING THIS UP. CM WILL CONTINUE TO WORK TO TRY TO GET THE PATIENT DOWNSTAIRS DCP- Discharge Planning Updated by [email or web address]: Babs Rodrigues on 02/13/20 1:[address] I CALLED CASSANDRA WITH [facility] AND LEFT A MESSAGE FOR HER TO CALL ME AND SEE IF THERE WAS ANYTHING WE CAN DO TO GET AUTH FOR INPATIENT REHAB. DCP- Discharge Planning Updated by [id number]: Amber Noble on 02/09/20 12:[address] CM contacted [facility], spoke with Robin, regarding Rehab order. Approval pending insurance approval. DCP- Discharge Planning Updated by [id number]: Christian Dallas on 02/07/20 9:[address] Patient Name: NATHALIE OLIVO Admission Status: Elective Accout number: [id number] Admission Date: 02-06-2020 : 1955 Admission Diagnosis: Attending: YENI GRANDE Current LOS: 1 Anticipated DC Date: Planned Disposition: Inpatient Rehab Primary Insurance: [facility] MEDICARE SOLUTIONS Discharge Planning Comments: CM met with patient to complete initial dc planning assessment. CM educated patient on the CM role and verbal consent given by patient to speak with his daughter, Raquel Olivo ([phone]) to complete assessment. Verified patient's address, phone number, and emergency contact phone numbers. Patient lives at home alone. At discharge patient plans to return home and feels this is a safe discharge. Patient states that his daughter had a wheelchair ramp installed. CM discussed availability of home health, rehab services, and medical equipment with both the patient and his daughter (over the phone). Discussed inpatient Rehab. Daughter and patient would like to enroll in rehabilitation services at [facility]. SNF, HH, and DME declined. No other DC needs identified at this time. Transportation provider at discharge will be with his Daughter, Raquel . CM will continue to follow and will assist as needed with dc plans/needs. Filemaker Developer: Christian Dallas DCPIA - Discharge Planning Initial Assessment Updated by [email or web address]: Christian Dallas on 02/07/20 10:03 am * Is the patient Alert and Oriented? Yes * How many steps to enter\exit or inside your home? RAMP * PCP Dr. Enrique Stinson [place] * Pharmacy [facility]) * Preadmission Environment Home Alone * ADLs Partial Dependent * Partial ADLs (Assistance needed) Ambulation Dressing Medication Management * Equipment Walker * Other Equipment Right LL prosthesis * List name and contact numbers for known caregivers / representatives who currently or will assist patient after discharge: Raquel Olivo - [phone] Alejandrina Olivo - [phone] * Verbal permission to speak to the caregivers and representatives has been obtained from the patient. Yes * Community resources currently utilized None * Additional services required to return to the preadmission environment? Yes * Can the patient safely return to the preadmission environment? Yes * Has this patient been hospitalized within the prior 30 days at any hospital? No Coverage Notice Reviewer: [id number] Milad Dallas Notice Issued Date-Time: 02/07/2020 9:00 Notice Type: Patient Choice Letter Notice Delivered To: Patient Relationship to Patient: Land Checker Name: Delivery Method: HAND - Hand Delivered Mamta Days: Prior Verbal Notification: Recipient Understood Notice: Yes Recipient Signature: Yes Med Rec Note Co-signed by Attending: Coverage Notice Comment: [facility] Inpatient Rehab Reviewer: [id number] Milad Dallas Notice Issued Date-Time: 02/07/2020 9:00 Notice Type: IM Discharge Notice Notice Delivered To: Patient Relationship to Patient: Land Checker Name: Delivery Method: HAND - Hand Delivered Mamta Days: Prior Verbal Notification: Recipient Understood Notice: Yes Recipient Signature: Yes Med Rec Note Co-signed by Attending: Coverage Notice Comment: IMM Explained, understood, signed, copied and given to patient. Placed on Chart. Reviewer: [id number] Milad Theodore Notice Issued Date-Time: 02/12/2020 15:45 Notice Type: IM Discharge Notice Notice Delivered To: Relationship to Patient: Land Checker Name: Delivery Method: HAND - Hand Delivered Mamta Days: Prior Verbal Notification: Recipient Understood Notice: Yes Recipient Signature: Yes Med Rec Note Co-signed by Attending: Coverage Notice Comment: Last DP export: 02/14/20 5:39 a Patient Name: NATHALIE OLIVO Page [phone] at 0658 All edits/amendments must be made on the electronic document DICTATION DATE: 02/14/20656 SILICA FILTER OPERATOR: FRANK 02/14/2057 RPT#: [id number] DC DATE: STATUS: ADM IN [facility] [address] [place] [address] END OF REPORT
--- NOTE | 2020-02-14 07:53 | MORECARE ---
CASE MANAGEMENT DISCHARGE SUMMARY PATIENT: NATHALIE OLIVO UNIT: [id number] ADM DATE: 02/06/20 AGE: 64 : 57 SEX: M ROOM/BED: D.1204 AUTHOR: RYAN,DOC PHYSICIAN: REFERRING PHYSICIAN: YENI GRANDE DO DATE OF SERVICE: 02/14/20 Discharge Plan Patient Name: NATHALIE OLIVO Facility: [facility]:[place] : 1955 Planned Disposition: Inpatient Rehab Anticipated Discharge Date: Discharge Date: Expected LOS: Initial Reviewer: [email or web address] Initial Review Date: 02/06/2020 Generated: 02/14/20 8:53 am Comments DCP- Discharge Planning Updated by [id number]: Babs Rodrigues on 02/14/20 6:[address] JOSEF WITH [facility] CALLED ME BACK AND HE STATED THAT THEY HAVE APPROVED HIM TO GO TO INPATIENT REHAB FOR 7 DAYS AUTH # [id number] UPDATES NEED TO BE SENT TO [facility] PHONE# [phone] FAX # [phone] I HAVE ALSO LET DR GRANDE KNOW DCP- Discharge Planning Updated by [email or web address]: Babs Rodrigues on 02/14/20 5:[address] I HAVE CALLED [facility] THIS AM AND LEFT MESSAGES WITH PB AT [phone] EXT [phone] & JOSEF BARNEY [phone] DCP- Discharge Planning Updated by [id number]: Babs Rodrigues on 02/14/20 5:[address] LATE ENTRY: CASSANDRA WITH [facility] CALLED ME BACK AND STATED THAT SHE SHOWS THAT IT IS IS THE MD HANDS, SHE SAID THE CM WHO IS THE ONE I NEED TO TALK TO IS JOSEF BARNEY [phone] SHE SAID THAT SHE WOULD SEND HIM AN EMAIL, I CALLED JOSEF AND LEFT MESSAGE FOR HIM TO CALL ME. I EXPLAINED TO CASSANDRA THAT THEY PATIENT HAS BEEN READY TO GO TO REHAB SINCE THIS PAST WEDNESDAY AND THAT THEY WERE THE ONES WHO WAS HOLDING THIS UP. CM WILL CONTINUE TO WORK TO TRY TO GET THE PATIENT DOWNSTAIRS DCP- Discharge Planning Updated by [id number]: Babs Rodrigues on 02/13/20 1:[address] I CALLED CASSANDRA WITH [facility] AND LEFT A MESSAGE FOR HER TO CALL ME AND SEE IF THERE WAS ANYTHING WE CAN DO TO GET AUTH FOR INPATIENT REHAB. DCP- Discharge Planning Updated by [email or web address]: Amber Guillenlroy on 02/09/20 12:[address] CM contacted [facility], spoke with Robin, regarding Rehab order. Approval pending insurance approval. DCP- Discharge Planning Updated by [email or web address]: Christian Dallas on 02/07/20 9:[address] Patient Name: NATHALIE OLIVO Admission Status: Elective Accout number: [id number] Admission Date: 02-06-2020 : 1955 Admission Diagnosis: Attending: YENI GRADNE Current LOS: 1 Anticipated DC Date: Planned Disposition: Inpatient Rehab Primary Insurance: [facility] MEDICARE SOLUTIONS Discharge Planning Comments: CM met with patient to complete initial dc planning assessment. CM educated patient on the CM role and verbal consent given by patient to speak with his daughter, aRquel Olivo ([phone]) to complete assessment. Verified patient's address, phone number, and emergency contact phone numbers. Patient lives at home alone. At discharge patient plans to return home and feels this is a safe discharge. Patient states that his daughter had a wheelchair ramp installed. CM discussed availability of home health, rehab services, and medical equipment with both the patient and his daughter (over the phone). Discussed inpatient Rehab. Daughter and patient would like to enroll in rehabilitation services at [facility]. SNF, HH, and DME declined. No other DC needs identified at this time. Transportation provider at discharge will be with his Daughter, Raquel . CM will continue to follow and will assist as needed with dc plans/needs. Vice President Of Instruction: Christian Dallas DCPIA - Discharge Planning Initial Assessment Updated by [email or web address]: Christian Dallas on 02/07/20 10:03 am * Is the patient Alert and Oriented? Yes * How many steps to enter\exit or inside your home? RAMP * PCP Dr. Enrique Palma * Pharmacy [facility]) * Preadmission Environment Home Alone * ADLs Partial Dependent * Partial ADLs (Assistance needed) Ambulation Dressing Medication Management * Equipment Walker * Other Equipment Right LL prosthesis * List name and contact numbers for known caregivers / representatives who currently or will assist patient after discharge: Raquel Olivo - [phone] Alejandrina Olivo - [phone] * Verbal permission to speak to the caregivers and representatives has been obtained from the patient. Yes * Community resources currently utilized None * Additional services required to return to the preadmission environment? Yes * Can the patient safely return to the preadmission environment? Yes * Has this patient been hospitalized within the prior 30 days at any hospital? No Coverage Notice Reviewer: [id number] Milad Dallas Notice Issued Date-Time: 02/07/2020 9:00 Notice Type: Patient Choice Letter Notice Delivered To: Patient Relationship to Patient: Front Office Attendant Name: Delivery Method: HAND - Hand Delivered Mamta Days: Prior Verbal Notification: Recipient Understood Notice: Yes Recipient Signature: Yes Med Rec Note Co-signed by Attending: Coverage Notice Comment: [facility] Inpatient Rehab Reviewer: [id number] Milad Dallas Notice Issued Date-Time: 02/07/2020 9:00 Notice Type: IM Discharge Notice Notice Delivered To: Patient Relationship to Patient: Front Office Attendant Name: Delivery Method: HAND - Hand Delivered Mamta Days: Prior Verbal Notification: Recipient Understood Notice: Yes Recipient Signature: Yes Med Rec Note Co-signed by Attending: Coverage Notice Comment: IMM Explained, understood, signed, copied and given to patient. Placed on Chart. Reviewer: [email or web address] Milad Theodore Notice Issued Date-Time: 02/12/2020 15:45 Notice Type: IM Discharge Notice Notice Delivered To: Relationship to Patient: Front Office Attendant Name: Delivery Method: HAND - Hand Delivered Mamta Days: Prior Verbal Notification: Recipient Understood Notice: Yes Recipient Signature: Yes Med Rec Note Co-signed by Attending: Coverage Notice Comment: Last DP export: 02/14/20 5:58 a Patient Name: NATHALIE OLIVO Page [id number] at 0753 All edits/amendments must be made on the electronic document DICTATION DATE: 02/14/20752 RADIOLOGY NURSE: FRANK 02/14/20 075 RPT#: [id number] DC DATE: STATUS: ADM IN [facility] [address] [place] [address] END OF REPORT
--- NOTE | 2020-02-14 08:00 | NUR ---
PT RESTING IN BED WITH EYES OPEN CALL LIGHT IN REACH WILL MONITER
--- NOTE | 2020-02-14 08:40 | NUR ---
PT CPM TAKEN OFF
[2020-02-14 10:17] VITALS: BP 103/67
--- NOTE | 2020-02-14 15:45 | NUR ---
PT DISCHARGED TO REHAB PER WHEELCHAIR REPORT CALLED TO [facility] PT DISCHARGE PAPERWORK AND MEDS SENT WITH PT PT TOLERATED WELL
--- NOTE | 2020-02-14 17:00 | MORECARE ---
CASE MANAGEMENT DISCHARGE SUMMARY PATIENT: NATHALIE OLIVO UNIT: [id number] ADM DATE: 02/06/20 AGE: 64 : 57 SEX: M ROOM/BED: D.1204 AUTHOR: RYAN,DOC PHYSICIAN: REFERRING PHYSICIAN: YENI GRANDE DO DATE OF SERVICE: 02/14/20 Discharge Plan Patient Name: NATHALIE OLIVO Facility: [facility]:[place] : 1955 Planned Disposition: Inpatient Rehab Anticipated Discharge Date: 02/14/20 Discharge Date: 02/14/2020 Expected LOS: 8 Initial Reviewer: [id number] Initial Review Date: 02/06/2020 Generated: 02/14/20 5:59 pm Comments DCP- Discharge Planning Updated by [email or web address]: Babs Rodrigues on 02/14/20 6:[address] JOSEF WITH [facility] CALLED ME BACK AND HE STATED THAT THEY HAVE APPROVED HIM TO GO TO INPATIENT REHAB FOR 7 DAYS AUTH # [id number] UPDATES NEED TO BE SENT TO [facility] PHONE# [phone] FAX # [phone] I HAVE ALSO LET DR GRANDE KNOW DCP- Discharge Planning Updated by [email or web address]: Babs Rodrigues on 02/14/20 5:[address] I HAVE CALLED [facility] THIS AM AND LEFT MESSAGES WITH PB AT [phone] EXT [phone] & JOSEF BARNEY [phone] DCP- Discharge Planning Updated by [id number]: Babs Rodrigues on 02/14/20 5:[address] LATE ENTRY: CASSANDRA WITH [facility] CALLED ME BACK AND STATED THAT SHE SHOWS THAT IT IS IS THE MD HANDS, SHE SAID THE CM WHO IS THE ONE I NEED TO TALK TO IS JOSEF BARNEY [phone] SHE SAID THAT SHE WOULD SEND HIM AN EMAIL, I CALLED JOSEF AND LEFT MESSAGE FOR HIM TO CALL ME. I EXPLAINED TO CASSANDRA THAT THEY PATIENT HAS BEEN READY TO GO TO REHAB SINCE THIS PAST WEDNESDAY AND THAT THEY WERE THE ONES WHO WAS HOLDING THIS UP. CM WILL CONTINUE TO WORK TO TRY TO GET THE PATIENT DOWNSTAIRS DCP- Discharge Planning Updated by [email or web address]: Babs Rodrigues on 02/13/20 1:[address] I CALLED CASSANDRA WITH [facility] AND LEFT A MESSAGE FOR HER TO CALL ME AND SEE IF THERE WAS ANYTHING WE CAN DO TO GET AUTH FOR INPATIENT REHAB. DCP- Discharge Planning Updated by [email or web address]: Amber Guillenlroy on 02/09/20 12:[address] CM contacted [facility], spoke with Robin, regarding Rehab order. Approval pending insurance approval. DCP- Discharge Planning Updated by [id number]: Christian Dallas on 02/07/20 9:[address] Patient Name: NATHALIE OLIVO Admission Status: Elective Accout number: [id number] Admission Date: 02-06-2020 : 1955 Admission Diagnosis: Attending: YENI GRANDE Current LOS: 1 Anticipated DC Date: Planned Disposition: Inpatient Rehab Primary Insurance: [facility] MEDICARE SOLUTIONS Discharge Planning Comments: CM met with patient to complete initial dc planning assessment. CM educated patient on the CM role and verbal consent given by patient to speak with his daughter, Raquel Olivo ([phone]) to complete assessment. Verified patient's address, phone number, and emergency contact phone numbers. Patient lives at home alone. At discharge patient plans to return home and feels this is a safe discharge. Patient states that his daughter had a wheelchair ramp installed. CM discussed availability of home health, rehab services, and medical equipment with both the patient and his daughter (over the phone). Discussed inpatient Rehab. Daughter and patient would like to enroll in rehabilitation services at [facility]. SNF, HH, and DME declined. No other DC needs identified at this time. Transportation provider at discharge will be with his Daughter, Raquel . CM will continue to follow and will assist as needed with dc plans/needs. Element Burner: Christian Dallas DCPIA - Discharge Planning Initial Assessment Updated by [email or web address]: Christian Dallas on 02/07/20 10:03 am * Is the patient Alert and Oriented? Yes * How many steps to enter\exit or inside your home? RAMP * PCP Dr. Enrique Palma * Pharmacy [facility]) * Preadmission Environment Home Alone * ADLs Partial Dependent * Partial ADLs (Assistance needed) Ambulation Dressing Medication Management * Equipment Walker * Other Equipment Right LL prosthesis * List name and contact numbers for known caregivers / representatives who currently or will assist patient after discharge: Raquel Olivo - [phone] Alejandrina Olivo - [phone] * Verbal permission to speak to the caregivers and representatives has been obtained from the patient. Yes * Community resources currently utilized None * Additional services required to return to the preadmission environment? Yes * Can the patient safely return to the preadmission environment? Yes * Has this patient been hospitalized within the prior 30 days at any hospital? No Coverage Notice Reviewer: [id number] Milad Dallas Notice Issued Date-Time: 02/07/2020 9:00 Notice Type: Patient Choice Letter Notice Delivered To: Patient Relationship to Patient: Hospice Coordinator Name: Delivery Method: HAND - Hand Delivered Mamta Days: Prior Verbal Notification: Recipient Understood Notice: Yes Recipient Signature: Yes Med Rec Note Co-signed by Attending: Coverage Notice Comment: [facility] Inpatient Rehab Reviewer: [email or web address] Milad Dallas Notice Issued Date-Time: 02/07/2020 9:00 Notice Type: IM Discharge Notice Notice Delivered To: Patient Relationship to Patient: Hospice Coordinator Name: Delivery Method: HAND - Hand Delivered Mamta Days: Prior Verbal Notification: Recipient Understood Notice: Yes Recipient Signature: Yes Med Rec Note Co-signed by Attending: Coverage Notice Comment: IMM Explained, understood, signed, copied and given to patient. Placed on Chart. Reviewer: [id number] Milad Theodore Notice Issued Date-Time: 02/12/2020 15:45 Notice Type: IM Discharge Notice Notice Delivered To: Relationship to Patient: Hospice Coordinator Name: Delivery Method: HAND - Hand Delivered Mamta Days: Prior Verbal Notification: Recipient Understood Notice: Yes Recipient Signature: Yes Med Rec Note Co-signed by Attending: Coverage Notice Comment: Last DP export: 02/14/20 6:53 a Patient Name: NATHALIE OLIVO Page [id number] at 1700 All edits/amendments must be made on the electronic document DICTATION DATE: 02/14/201658 GUEST ROOM ATTENDANT: FRANK 02/14/201658 RPT#: [id number] DC DATE:02/14/20 STATUS: DIS IN [facility] [address] [place] [address] END OF REPORT
--- NOTE | 2020-02-14 19:08 | NUR ---
OT NOTE: PT ABLE TO PERFORM BED MOB WITH VERY MIN ASSIST; ABLE TO [place] PROSTHESIS WITH SET UP. PT WAS OBSERVED AMBULATING WITH PHYS THERAPY AND PERFORMING MUCH BETTER THAN LAST WEEK..SIT TO STAND REMAINS DIFFICULT, HOWEVER, ONCE IN STANDING, PT WAS ABLE TO AMB GREATER THAN 40 FT. DISCUSSED PROGRESS AND PT IS HOPEFUL TO GO TO REHAB TODAY. PT VERY MOTIVATED AND WILL DO WELL. CASSANDRA SEE, OTR/L [phone]
== END 2020-02-14 16:39 | DRG 470 ==
LOC: D.SDCHOLD 01-31 10:00 → D.M3 02-06 10:01 → D.SDCHOLD 02-06 10:01 → D.M3 02-06 13:37 → D.SDCHOLD 02-06 14:45 → D.MS 02-11 17:34 → D.M3 02-13 16:24
PROVIDERS: Emergency Medicine; ADMIT Orthopaedic Surgery; ATTEND Orthopaedic Surgery
PROC: 0SRD0J9 Replacement of Left Knee Joint with Synthetic Substitute, Cemented, Open Approach (ICD-10-PCS; principal; 2020-02-06 11:15)
DX: M17.12 Unilateral primary osteoarthritis, left knee (principal); I10 Essential (primary) hypertension; F32.9 Major depressive disorder, single episode, unspecified; F41.9 Anxiety disorder, unspecified; Z89.611 Acquired absence of right leg above knee

== ENCOUNTER 2020-02-14 15:18 | Inpatient (IN) | payer MEDICARE, MEDICAID ==
[~2020-02-14] VITALS: Ht 172.7 cm; Wt 113.4 kg
[~2020-02-14 15:18] MED LIST: ELIQUIS2.5 MG PO; KEFLEX500 MG PO; MOBIC7.5 MG PO; TOPROL XL100 MG PO; ULTRAM50 MG PO; VISTARIL50 MG PO; ZANAFLEX4 MG PO; oxyCODONE IR PO
--- NOTE | 2020-02-14 15:30 | NUR ---
RECIEVED TO ROOM/WC.ORIENTED TO SURROUNDINGS.DRSG INTACT TO LEFT TKA,PROSTHESIS TO RT AKA IN PLACE.
--- NOTE | 2020-02-14 18:45 | NUR ---
RECEVEIVED PT SITTING UP IN BED. DENIES ANY NEEDS OR PAIN. NO SIGNS OF ACUTE DISTRESS NOTED. CALL LIGHT WITHIN REACH. FALL PRECAUTIONS IN PLACE. CPOC
[2020-02-14 18:51] VITALS: BP 131/79; BMI 38.1
[2020-02-14 19:08] VITALS: BP 137/87
--- NOTE | 2020-02-15 00:47 | NUR ---
PT LYING IN BED EYES CLOSED RESTING COMFORTABLY. RR EVEN AND UNLABORED. CALL LIGHT WITHIN REACH. FALL PRECAUTIONS IN PLACE. CPOC
--- NOTE | 2020-02-15 02:45 | NUR ---
PT LYING IN BED EYES CLOSED RESTING. RR EVEN AND UNLABORED. CALL LIGHT WITHIN REACH. WILL CONTINUE TO MONITOR
[2020-02-15 07:58] VITALS: BP 126/83
--- NOTE | 2020-02-15 08:00 | NUR ---
SHIFT ASSMT COMPLETED.
[2020-02-15 14:48] VITALS: Ht 172.7 cm; Wt 113.4 kg
--- NOTE | 2020-02-15 15:20 | NUR ---
PATIENT ADMITTED TO REHAB FROM ACUTE FLOOR. DR. LEMUS IS HIS PCP. DME AT HOME IS A WALKER. DISCHARGE PLANS ARE FOR PATIENT TO RETURN TO HIS HOME. WILL CONTINUE TO FOLLOW WITH PATIENT.
--- NOTE | 2020-02-15 19:19 | NUR ---
RECIEVED UP IN BED WITH CMP ON LEG. ALERT AND ORIENTED X4. UP WITH ASSIST. REMOVED CMP . DSG TO LT KNEE. CDI. HAS AN OLD RT AKA. REQUEST TO SIGN BED WAIVER. THIS NURSE WITNESSED. DENIES ANY NEEDS AT THIS TIME.
[2020-02-15 19:39] VITALS: BP 136/90
--- NOTE | 2020-02-16 04:23 | NUR ---
INCONTINENT OF URINE. PERICARE PROVIDED AND ASSISTED TO BEDSIDE COMMODE. PAD CHANGED AND BRIEF CHANGE.
[2020-02-16 07:50] VITALS: BP 102/72
--- NOTE | 2020-02-16 08:15 | NUR ---
TRANSFERS SELF FROM BED TO WC. IS CONTINENT OF B/B AND WHEELED SELF TO BATHROOM. USES URINAL AT TIMES WHEN IN BED.
[2020-02-16 09:36] LABS: BASOPHILS 0.7 % (0-2); EOSINOPHILS 2.6 % (0-7); HEMATOCRIT 41.6 % (42.0-54.0); HEMOGLOBIN 13.6 g/dL (13.5-17.5); IMMATURE GRANULOCYTES 0.2 % (0-5); LYMPHOCYTES 31.2 % (15-50); MCH 30.4 pg (26.0-34.0); MCHC 32.7 g/dL (31.0-37.0); MCV 93.1 fL (80.0-100.0); MEAN PLATELET VOLUME 9.6 fL (7.4-10.4); MONOCYTES 7.9 % (2-11); NEUTROPHILS 57.4 % (40-80); RBC 4.47 10x6/uL (4.20-6.10); RDW 13.5 % (11.5-14.5); WBC 4.6 10x3/uL (4.8-10.8)
[2020-02-16 09:44] LABS: PLATELET COUNT 345 10x3/uL (130-400)
[2020-02-16 09:56] LABS: ANION GAP 9.7 mmol/L (8-16); CALCIUM 8.5 mg/dL (8.5-10.1); CARBON DIOXIDE 29.2 mmol/L (21.0-32.0); CREATININE - SERUM 1.3 mg/dL (0.6-1.3); POTASSIUM - SERUM 4.9 mmol/L (3.5-5.1)
--- NOTE | 2020-02-16 15:44 | NUR ---
RESTING QUIETLY IN BED. USES URINAL. USES WC FOR MOTION ASST. DENIES INCREASED PAIN. CALL LIGHT IN REACH
--- NOTE | 2020-02-16 19:31 | NUR ---
AWAKE AND ALERT. SITTING UP IN BED TALKING ON PHONE. DENIES NEEDS AT THIS TIME. LEFT KNEE DRESSING DRY AND INTACT. NO DISTRESS NOTED.
[2020-02-16 19:47] VITALS: BP 127/76
--- NOTE | 2020-02-17 02:23 | NUR ---
SLEEPING WITH RESPIRAITONS UNLABORED. NO DISTRESS NOTED.
--- NOTE | 2020-02-17 02:30 | NUR ---
I have reviewed this patient and I concur with the Shift Assessment completed by the Licensed Practical Nurse today this shift.
--- NOTE | 2020-02-17 03:50 | NUR ---
MEDICATED FOR PAIN IN KNEE. SEE MAR. RESPIRATIONS UNLABORED. CALL LIGHT IN REACH.
--- NOTE | 2020-02-17 05:38 | NUR ---
RESTING QUIETLY. NO ACUTE CHANGES IN CONDITION THIS SHIFT. RESPIRATIONS UNLABORED. NO DISTRESS NOTED. CALL LIGHT IN REACH.
--- NOTE | 2020-02-17 08:00 | NUR ---
SITTING UP IN BED. DENIES INCREASED PAIN OR NEED FOR PAIN MEDS AT PRESENT. HAS PROSTHETIC BY BEDSIDE. USES URINAL IN BED. SIDE RAILS UP X2. BED IN LOWEST POSITION. CALL LIGHT IN REACH
--- NOTE | 2020-02-17 12:34 | NUR ---
RESTING QUIETLY IN BED. STILL DENIES NEED FOR PAIN MEDS. CAN TRANSFER SELF FROM BED TO WC AND TO TOILET AND BACK. CALL LIGHT IN REACH
--- NOTE | 2020-02-17 19:24 | NUR ---
AWAKE AND ALERT. RESTING IN BED. MEDICATED WITH A MUSCLE RELAXER PER HIS REQUEST. SEE MAR. RESPIRATIONS UNLABORED. LEFT KNEE DRESSING INTACT. OLD RIGHT AKA. NO ACUTE DISTRESS NOTED. CALL LIGHT IN REACH.
[2020-02-17 20:00] VITALS: BP 122/84
--- NOTE | 2020-02-18 00:45 | NUR ---
SLEEPING WITH RESPIRATIONS UNLABORED. NO DISTRESS NOTED.
--- NOTE | 2020-02-18 04:59 | NUR ---
QUIET HOURS. NO ACUTE CHANGES IN CONDITION THIS SHIFT. RESTING IN BED READING. NO DISTRESS NOTED.
[2020-02-18 09:26] VITALS: BP 128/75
[2020-02-18 19:39] VITALS: BP 140/66
--- NOTE | 2020-02-18 19:52 | NUR ---
AWAKE AND ALERT. RESTING IN BED WITH RESPIRAITONS UNLABORED. DRESSING TO LEFT KNEE INTACT. NOTED RIGHT AKA. NO DISTRESS NOTED. CALL LIGHT IN REACH.
--- NOTE | 2020-02-19 01:01 | NUR ---
RESTING WITH EYES CLOSED AND RESPIRAITONS UNLABORED. NO DISTRESS NOTED.
--- NOTE | 2020-02-19 05:20 | NUR ---
QUIET HOURS. NO ACUTE CHANGES IN CONDITION THIS SHIFT. RESTING IN BED WITH NO DISTRESS NOTED.
[2020-02-19 07:14] LABS: BASOPHILS 0.8 % (0-2); EOSINOPHILS 2.8 % (0-7); HEMATOCRIT 39.9 % (42.0-54.0); HEMOGLOBIN 13.1 g/dL (13.5-17.5); IMMATURE GRANULOCYTES 0.2 % (0-5); LYMPHOCYTES 31.5 % (15-50); MCH 30.5 pg (26.0-34.0); MCHC 32.8 g/dL (31.0-37.0); MEAN PLATELET VOLUME 9.1 fL (7.4-10.4); MONOCYTES 10.5 % (2-11); NEUTROPHILS 54.2 % (40-80); PLATELET COUNT 322 10x3/uL (130-400); RBC 4.29 10x6/uL (4.20-6.10); RDW 13.6 % (11.5-14.5)
[2020-02-19 07:29] LABS: ANION GAP 10.8 mmol/L (8-16); CALCIUM 8.4 mg/dL (8.5-10.1); CARBON DIOXIDE 28.4 mmol/L (21.0-32.0); CREATININE - SERUM 1.1 mg/dL (0.6-1.3); POTASSIUM - SERUM 4.2 mmol/L (3.5-5.1)
[2020-02-19 08:00] VITALS: BP 131/83
--- NOTE | 2020-02-19 11:20 | NUR ---
Nutrition Follow-up: Diet: Regular Vegetartian PO intake: 75-100% x all meals. States that his appetite is "wonderful!" Last BM: 02/15/20. Wt: 250# (02/15/20) Meds and labs reviewed Recommend continue current diet. RD following.
--- NOTE | 2020-02-19 12:50 | NUR ---
SITTING UP IN WC FINISHING LUNCH. HAS BEEN UP AND DOWN FROM BED TO WC FOR THERAPY AND USING THE RESTROOM. ABLE TO TRANSFER SELF. DENIES INCREASED PAIN. BED IN LOWEST POSITION, SIDE RAILS UP X2, CALL LIGHT IN REACH
--- NOTE | 2020-02-19 13:36 | NUR ---
CLINICAL UPDATES FAXED TO [facility] AT [facility] , AUTH. #[id number] WITH A TENATIVE DC DATE OF 02/21/20. WILL CONTINUE TO FOLLOW WITH PATIENT.
[2020-02-19 19:26] VITALS: BP 134/89
--- NOTE | 2020-02-19 19:58 | NUR ---
PT IN BED ON PHONE, NO NEEDS NOTED AT THIS TIME, RESPIRATIONS EVEN/UNLABORED, FALL PRECAUTIONS IN PLACE, FLUIDS/CALL LIGHT WITHIN REACH
--- NOTE | 2020-02-20 02:05 | NUR ---
PT IN BED ASLEEP,AROUSES EASILY TO VOICE NO NEEDS NOTED AT THIS TIME, RESPIRATIONS EVEN/UNLABORED, FALL PRECAUTIONS IN PLACE, FLUIDS/CALL LIGHT WITHIN REACH
--- NOTE | 2020-02-20 05:06 | NUR ---
PT IN BED ASLEEP,AROUSES EASILY TO VOICE NO NEEDS NOTED AT THIS TIME, RESPIRATIONS EVEN/UNLABORED, FALL PRECAUTIONS IN PLACE, FLUIDS/CALL LIGHT WITHIN REACH
--- NOTE | 2020-02-20 07:37 | NUR ---
HE IS ALERT, TOOK HIS MEDICATIONS WITHOUT ANY PROBLEMS. THE DRESSING TO HIS LEFT KNEE IS CLEAN, DRY AND INTACT. THE CALL LIGHT IS WITHIN REACH.
[2020-02-20 08:00] VITALS: BP 165/81
--- NOTE | 2020-02-20 15:04 | NUR ---
DRESSING CHANGED TO THE LEFT KNEE. NO REDNESS OR DRAINAGE. THE CALL LIGHT IS WITHIN REACH.
--- NOTE | 2020-02-20 18:40 | NUR ---
RECEIVED PT SITTING UP IN BED TALKING ON PHONE. ALERT AND ORIENTED X4. DENIES ANY NEEDS OR PAIN. LEFT KNEE DRESSING INTACT. NO SIGNS OF ACUTE DISTRESS NOTED. CALL LIGHT AND WATER WITHIN REACH. FALL PRECAUTIONS IN PLACE. CPOC
[2020-02-20 18:47] VITALS: BP 127/82
--- NOTE | 2020-02-20 23:05 | NUR ---
PT LYING IN BED EYES CLOSED RESTING. RR EVEN AND UNLABORED. CALL LIGHT AND URINAL WITHIN REACH. WILL CONTINUE TO MONITOR
--- NOTE | 2020-02-21 01:08 | NUR ---
PT LYING IN BED ON RIGHT SIDE EYES CLOSED RESTING. RR EVEN AND UNLABORED. CALL LIGHT WITHIN REACH. CPOC
--- NOTE | 2020-02-21 04:10 | NUR ---
PT LYING IN BED EYES CLOSED RESTING. NO ACUTE CHANGES IN CONDITION NOTED THIS SHIFT. CALL LIGHT AND URINAL WITHIN REACH. WILL CONTINUE TO MONITOR
[2020-02-21 07:17] LABS: BASOPHILS 0.8 % (0-2); EOSINOPHILS 3.5 % (0-7); HEMATOCRIT 39.5 % (42.0-54.0); HEMOGLOBIN 12.9 g/dL (13.5-17.5); IMMATURE GRANULOCYTES 0.2 % (0-5); LYMPHOCYTES 32.5 % (15-50); MCH 29.9 pg (26.0-34.0); MCHC 32.7 g/dL (31.0-37.0); MCV 91.4 fL (80.0-100.0); MEAN PLATELET VOLUME 9.3 fL (7.4-10.4); MONOCYTES 8.6 % (2-11); NEUTROPHILS 54.4 % (40-80); PLATELET COUNT 328 10x3/uL (130-400); RBC 4.32 10x6/uL (4.20-6.10); RDW 13.3 % (11.5-14.5); WBC 4.9 10x3/uL (4.8-10.8)
[2020-02-21 07:23] VITALS: BP 135/58
[2020-02-21 07:30] LABS: CALC OSMOLALITY 275 mosm/kg (275-300); CALCIUM 8.7 mg/dL (8.5-10.1); CARBON DIOXIDE 29.5 mmol/L (21.0-32.0); CHLORIDE - SERUM 103 mmol/L (98-107); GLUCOSE 89 mg/dL (74-106); POTASSIUM - SERUM 4.6 mmol/L (3.5-5.1); SODIUM 138 mmol/L (136-145); UREA NITROGEN 15 mg/dL (7-18); eGFR NON AFRICAN AMERICAN 80 mL/min (90-120)
--- NOTE | 2020-02-21 08:00 | NUR ---
ASSMT COMPLETED.PLAN TO DC HOME TODAY.
[2020-02-21] MEDS ORDERED: oxyCODONE IR PO (08:43)
--- NOTE | 2020-02-21 08:44 | RHP ---
PATIENT: NATHALIE CELESTE MEDICAL RECORD: [id number] ACCOUNT: [id number] LOCATION:[id number] : 57 ADMISSION DATE: 02/14/20 REHABILITATION HISTORY AND PHYSICAL EXAMINATION POST ADMISSION PHYSICIAN EXAMINATION ADMITTING DIAGNOSIS: Left total knee replacement. HISTORY OF PRESENT ILLNESS: The patient is a 64-year-old obese male who comes in secondary to a left extremity joint replacement. He had end-stage osteoarthritis of bilateral knees, status post left total knee replacement. The patient has got a history hypertension, depression, anxiety. 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 He has had failed nonoperative therapy and wanted something done surgically to help him where he could actually get around and do activities of daily living. On 02/06/2020, went to the OR for left total knee. Postop, he had hypertension and some hypoxia. He has been placed on supplemental O2 and also incentive spirometry. Previously, he was living with his mother and was her primary caregiver. Currently, he is working with PT and OT. He is mod to max assist for ADLs and mobility. He is very motivated; however, tired. He has extensive assist to sit to stand and functional transfers due to his most weightbearing being placed on his left lower extremity as his prosthesis is difficult to get in correct position for standing. He wants to be able to return back to home at his prior level of functioning. COMORBIDITIES: Include anxiety, arthritis, depression, difficulty walking, decrease in physical functioning. PAST MEDICAL HISTORY: Significant for sarcoma, hypertension, has got a history of arthritis, skin cancers, depression and anxiety. PAST SURGICAL HISTORY: Includes a right psblm-ynr-[id number] amputation. ALLERGIES: ACETAMINOPHEN, TORADOL AND DARVOCET. CURRENT MEDICATIONS: Include Floranex 1 cap daily. He is on metoprolol 100 mg b.i.d., Keflex 500 mg b.i.d., Eliquis 2.5 mg b.i.d., Zanaflex 4 mg every 8 hours p.r.n., oxycodone 5 mg every 4 hours. He is on Atarax 50 mg q.i.d. p.r.n. and MiraLax 17 grams in 8 ounces of water daily. HABITS: No alcohol or tobacco use. FAMILY HISTORY: Noncontributory. SOCIAL HISTORY: The patient hopes to return back home and get back to his prior level of functioning. REVIEW OF SYSTEMS: GENERAL: Does complain of some weakness and fatigue. HEENT: Denies cold, cough, or congestion. CARDIOVASCULAR: Denies any chest pain. PHYSICAL EXAMINATION: VITAL SIGNS: Stable, afebrile. GENERAL: A well-developed gentleman who is in no acute distress, alert upon HISTORY AND PHYSICAL [id number] ROULANATHALIE exam. HEENT: Normocephalic and atraumatic. Mucosa moist. NECK: Supple. No lymphadenopathy. LUNGS: Clear in upper otero. No wheezing or rales. HEART: Regular rate and rhythm. No murmurs, rubs or gallops. ABDOMEN: Soft, benign and nondistended. Positive bowel sounds times 4. EXTREMITIES: Postop area looks pretty good. He is noted to have a right [id number]-smh-[id number] amputation. NEUROLOGIC: He seems mainly intact. Does have some weakness. ASSESSMENT: This is a 64-year-old gentleman admitted to the rehab with a working diagnosis of left total knee replacement. The patient has potential to make improvement. We instituted the following multidisciplinary therapies including not limited to physical, occupational, respiratory, speech, nutritional services, prosthetics and orthotics. Given his complex medical condition and risk for more complications, rehabilitation services cannot be provided at a low level of care such as assisted facility. PLAN: 1. Admit to [facility] for inpatient therapy to include the following disciplines; A. Physical therapy to improve gait, all transfer skills and bed mobility to a modified independent level. B. Occupational therapy to improve activities of daily living. C. Case management to help with discharge planning and placement options. D. Nutrition to assist with nutritional needs. E. Rehabilitation nursing to assist in monitoring the patient's underlying medical conditions and to assist with any type of bowel or bladder management. 2. The patient's current medication and medical care will be continued. 3. Placed on standard fall precautions. 4. The patient's estimated length of stay is approximately 7-10 days. 5. We will discuss this patient during care team staff meeting this week. We will continue on medications where appropriate and I will see again in the a.m. TRANSINT:[id number] Voice Confirmation ID: [id number] DOCUMENT ID: [id number] DONELL notes whether there has been none or any medical/functional change since admission: - No change since preadmission screen. DONELL attests patient continues to be appropriate for IRF: - Continues to be appropriate. HISTORY AND PHYSICAL [id number] NATHALIE CELESTE JOHN SCOTT MD at 0844 CC: [id number] DICTATION DATE: 02/15/20 0845 BENEFITS SALES CONSULTANT: 02/15/20 1053 ADM IN [place] [id number] [place] [id number]
--- NOTE | 2020-02-21 10:15 | NUR ---
DISCHARGED IN STABLE CONDITION.
--- NOTE | 2020-02-21 11:49 | NUR ---
PATIENT DISCHARGING HOME TODAY WITH FAMILY. [facility] WILL RESUME THERAPY AT HOME. PATIENT HAS ALL DME NEEDED AT THIS TIME. SOLANGE SIGNED, IMM SERVED AND EXPLAINED. ONE GIVEN TO PATIENT AND ONE FILED IN CHART. DR. ROGERS 02/22/20 @ 11:00, DR. GRANDE 02/26/20 @ 11:00. NO COMPARE DATA REVIEWED PATIENT IS A CLIENT OF [facility] AND WISHES TO REMAIN. DISCHARGE INSTRUCTIONS FAXED TO PCP, HOME HEALTH , [facility] ([facility]) , , AUTH. # [id number] WITH CONFORMATION OF FAX RECIEVED AND REVIEWED WITH PATIENT PER PRIMARY NURSE.
== END 2020-02-21 10:15 | disposition home health service (06) | DRG 561 ==
LOC: D.REHAB 15:18
PROVIDERS: ADMIT Emergency Medicine; ATTEND Emergency Medicine
DX: Z47.1 Aftercare following joint replacement surgery (principal); Z96.652 Presence of left artificial knee joint; M17.0 Bilateral primary osteoarthritis of knee; F41.9 Anxiety disorder, unspecified; M19.90 Unspecified osteoarthritis, unspecified site; I10 Essential (primary) hypertension; R26.2 Difficulty in walking, not elsewhere classified